=== PATIENT | female | born 1955 | race Caucasian/White ===

== ENCOUNTER → 2016-03-08 | Outpatient (CLI) | payer BC ==
[2016-03-08 17:27] LABS: Anisocytosis Slight; Basophils % (A) 1 %; CH 29.8; CHCM 32.7; Eosinophils # (A) 0.1 k/uL (0-0.7); Eosinophils % (A) 1 %; HCT 35.2 % (34.0-46.0); HDW 2.58; HGB 11.4 gm/dL (11.4-16.0); Luc # (Auto) 0.08; Luc % (Auto) 2; Lymphocytes # (A) 1.6 k/uL (1.0-4.8); Lymphocytes % (A) 42 %; MCH 29.7 pg (25.0-35.0); MCHC 32.5 g/dL (31.0-37.0); MCV 91.5 fL (80.0-100.0); Mean Platelet Volume 7.4; Monocytes # (A) 0.1 k/uL (0-1.0); Monocytes % (A) 3 %; Neutrophils # (A) 1.9 k/uL (1.3-7.7); Neutrophils % (A) 51 %; RBC 3.84 m/uL (3.80-5.40); RDW 16.9 % (11.5-15.5); WBC 3.7 k/uL (3.8-10.6); WBC (Perox) 3.73
== END | disposition home or self-care (01) ==
LOC: LABWHC1 16:48
PROVIDERS: ATTEND Obstetrics & Gynecology
DX: C56.1 Malignant neoplasm of right ovary (principal); C56.2 Malignant neoplasm of left ovary
CPT/HCPCS: 36415; 83735; 85025

== ENCOUNTER → 2016-03-15 | Outpatient (CLI) | payer BC ==
[2016-03-15 17:12] LABS: Anisocytosis Slight; Basophils % (A) 0 %; CH 29.9; Eosinophils % (A) 1 %; HCT 30.6 % (34.0-46.0); HDW 2.58; HGB 10.2 gm/dL (11.4-16.0); Luc # (Auto) 0.05; Luc % (Auto) 2; Lymphocytes # (A) 1.2 k/uL (1.0-4.8); Lymphocytes % (A) 40 %; MCH 30.2 pg (25.0-35.0); MCHC 33.3 g/dL (31.0-37.0); MCV 90.9 fL (80.0-100.0); Mean Platelet Volume 8.1; Monocytes # (A) 0.1 k/uL (0-1.0); Monocytes % (A) 4 %; Neutrophils # (A) 1.6 k/uL (1.3-7.7); Neutrophils % (A) 53 %; RBC 3.36 m/uL (3.80-5.40); WBC (Perox) 3.08
== END | disposition home or self-care (01) ==
LOC: LABWHC1 16:55
PROVIDERS: ATTEND Obstetrics & Gynecology
DX: C56.1 Malignant neoplasm of right ovary (principal); C56.2 Malignant neoplasm of left ovary
CPT/HCPCS: 36415; 85025

== ENCOUNTER → 2016-03-22 | Outpatient (CLI) | payer BC ==
[2016-03-22 17:25] LABS: ALT 59 U/L (9-52); AST 30 U/L (14-36); Alkaline Phosphatase 69 U/L (38-126); Anion Gap 11 mmol/L; Blood Urea Nitrogen 14 mg/dL (7-17); Calcium 9.8 mg/dL (8.4-10.2); Carbon Dioxide 27 mmol/L (22-30); Chloride 101 mmol/L (98-107); Glucose 93 mg/dL (74-99); Magnesium 1.6 mg/dL (1.6-2.3); Non-African American GFR(MDRD) >60 (>60 ml/min/1.73 sqM); Potassium 3.8 mmol/L (3.5-5.1); Sodium 139 mmol/L (137-145); Total Bilirubin 0.3 mg/dL (0.2-1.3); Total Protein 6.4 g/dL (6.3-8.2)
[2016-03-22 17:28] LABS: Anisocytosis Slight; Aty Lym Flag Slight; CH 30.2; CHCM 32.7; HCT 33.1 % (34.0-46.0); HDW 2.74; HGB 10.4 gm/dL (11.4-16.0); MCH 29.3 pg (25.0-35.0); MCHC 31.5 g/dL (31.0-37.0); MCV 92.9 fL (80.0-100.0); Macrocytosis Slight; Mean Platelet Volume 7.9; RBC 3.56 m/uL (3.80-5.40); RDW 18.7 % (11.5-15.5); WBC 2.9 k/uL (3.8-10.6); WBC (Perox) 2.97
[2016-03-22 17:53] LABS: Add Differential Manual Differential
[2016-03-22 17:54] LABS: Cancer Anitgen 125 <5.5 U/mL (<35.1); Nucleated Red Blood Cells 0 /100 WBC (0-0); Polychromasia Present; Total Cells Counted 100
== END | disposition home or self-care (01) ==
LOC: LABWHC1 16:39
PROVIDERS: ATTEND Obstetrics & Gynecology
DX: C56.1 Malignant neoplasm of right ovary (principal); C56.2 Malignant neoplasm of left ovary
CPT/HCPCS: 36415; 80053; 83735; 85025; 86304

== ENCOUNTER → 2016-03-29 | Outpatient (CLI) | payer BC ==
[2016-03-29 17:08] LABS: Anisocytosis Slight; Aty Lym Flag Slight; CH 29.9; CHCM 32.3; HCT 34.9 % (34.0-46.0); HDW 2.76; HGB 11.2 gm/dL (11.4-16.0); MCH 29.8 pg (25.0-35.0); MCHC 32.1 g/dL (31.0-37.0); MCV 92.8 fL (80.0-100.0); Mean Platelet Volume 6.7; RBC 3.76 m/uL (3.80-5.40); RDW 18.3 % (11.5-15.5); WBC 4.5 k/uL (3.8-10.6); WBC (Perox) 4.38
[2016-03-29 17:11] LABS: Anion Gap 12 mmol/L; Blood Urea Nitrogen 20 mg/dL (7-17); Calcium 10.2 mg/dL (8.4-10.2); Carbon Dioxide 28 mmol/L (22-30); Chloride 100 mmol/L (98-107); Glucose 90 mg/dL (74-99); Magnesium 1.6 mg/dL (1.6-2.3); Non-African American GFR(MDRD) >60 (>60 ml/min/1.73 sqM); Potassium 3.6 mmol/L (3.5-5.1); Sodium 140 mmol/L (137-145)
[2016-03-29 17:12] LABS: ALT 46 U/L (9-52); AST 27 U/L (14-36); Alkaline Phosphatase 68 U/L (38-126); Total Bilirubin 0.4 mg/dL (0.2-1.3); Total Protein 7.3 g/dL (6.3-8.2)
[2016-03-29 18:32] LABS: Add Differential Manual Differential
[2016-03-29 18:34] LABS: Nucleated Red Blood Cells 0 /100 WBC (0-0); Polychromasia Present; Total Cells Counted 100
== END | disposition home or self-care (01) ==
LOC: LABWHC1 16:41
PROVIDERS: ATTEND Obstetrics & Gynecology
DX: C56.1 Malignant neoplasm of right ovary (principal); C56.2 Malignant neoplasm of left ovary
CPT/HCPCS: 36415; 80053; 83735; 85025

== ENCOUNTER → 2016-04-05 | Outpatient (CLI) | payer BC ==
[2016-04-05 17:21] LABS: Anisocytosis Slight; Basophils % (A) 1 %; CHCM 32.6; Eosinophils % (A) 1 %; HCT 34.9 % (34.0-46.0); HGB 11.4 gm/dL (11.4-16.0); Luc # (Auto) 0.11; Luc % (Auto) 3; Lymphocytes # (A) 1.5 k/uL (1.0-4.8); Lymphocytes % (A) 43 %; MCH 30.2 pg (25.0-35.0); MCHC 32.7 g/dL (31.0-37.0); MCV 92.2 fL (80.0-100.0); Mean Platelet Volume 6.6; Monocytes # (A) 0.1 k/uL (0-1.0); Monocytes % (A) 3 %; Neutrophils # (A) 1.7 k/uL (1.3-7.7); Neutrophils % (A) 49 %; RBC 3.78 m/uL (3.80-5.40); RDW 17.9 % (11.5-15.5); WBC 3.5 k/uL (3.8-10.6); WBC (Perox) 3.67
== END | disposition home or self-care (01) ==
LOC: LABWHC1 16:35
PROVIDERS: ATTEND Obstetrics & Gynecology
DX: C56.1 Malignant neoplasm of right ovary (principal); C56.2 Malignant neoplasm of left ovary
CPT/HCPCS: 36415; 85025

== ENCOUNTER → 2016-04-12 | Outpatient (CLI) | payer BC ==
[2016-04-12 17:18] LABS: Anisocytosis Slight; Luc # (Auto) 0.11
[2016-04-12 17:27] LABS: Basophils % (A) 0 %; CH 30.2; CHCM 33.1; Eosinophils % (A) 1 %; HCT 31.9 % (34.0-46.0); HDW 2.53; HGB 10.8 gm/dL (11.4-16.0); Luc % (Auto) 4; Lymphocytes # (A) 1.2 k/uL (1.0-4.8); Lymphocytes % (A) 39 %; MCH 30.9 pg (25.0-35.0); MCHC 33.8 g/dL (31.0-37.0); MCV 91.4 fL (80.0-100.0); Mean Platelet Volume 6.6; Monocytes # (A) 0.1 k/uL (0-1.0); Monocytes % (A) 4 %; Neutrophils # (A) 1.5 k/uL (1.3-7.7); Neutrophils % (A) 52 %; RBC 3.49 m/uL (3.80-5.40); RDW 18.3 % (11.5-15.5); WBC 2.9 k/uL (3.8-10.6); WBC (Perox) 3.09
== END | disposition home or self-care (01) ==
LOC: LABWHC1 17:02
PROVIDERS: ATTEND Obstetrics & Gynecology
DX: C56.1 Malignant neoplasm of right ovary (principal); C56.2 Malignant neoplasm of left ovary
CPT/HCPCS: 36415; 85025

== ENCOUNTER → 2016-04-19 | Outpatient (CLI) | payer BC ==
[2016-04-19 16:54] LABS: Anisocytosis Slight; Aty Lym Flag Moderate; CH 30.2; CHCM 32.7; HCT 34.2 % (34.0-46.0); HDW 2.69; HGB 11.3 gm/dL (11.4-16.0); MCH 30.5 pg (25.0-35.0); MCHC 32.9 g/dL (31.0-37.0); MCV 92.8 fL (80.0-100.0); Macrocytosis Slight; Mean Platelet Volume 7.5; RBC 3.69 m/uL (3.80-5.40); RDW 19.4 % (11.5-15.5); WBC 3.8 k/uL (3.8-10.6); WBC (Perox) 4.05
[2016-04-19 17:05] LABS: ALT 52 U/L (9-52); AST 29 U/L (14-36); Alkaline Phosphatase 78 U/L (38-126); Anion Gap 9 mmol/L; Blood Urea Nitrogen 15 mg/dL (7-17); Carbon Dioxide 28 mmol/L (22-30); Chloride 103 mmol/L (98-107); Glucose 100 mg/dL (74-99); Magnesium 1.5 mg/dL (1.6-2.3); Non-African American GFR(MDRD) >60 (>60 ml/min/1.73 sqM); Sodium 140 mmol/L (137-145); Total Bilirubin 0.3 mg/dL (0.2-1.3)
[2016-04-19 17:35] LABS: Cancer Anitgen 125 <5.5 U/mL (<35.1)
[2016-04-19 18:37] LABS: Potassium 3.7 mmol/L (3.5-5.1)
[2016-04-19 19:18] LABS: Add Differential Manual Differential
[2016-04-19 19:20] LABS: Nucleated Red Blood Cells 0 /100 WBC (0-0); Total Cells Counted 100
[2016-04-19 19:21] LABS: Manual Review Performed
== END | disposition home or self-care (01) ==
LOC: LABWHC1 16:33
PROVIDERS: ATTEND Obstetrics & Gynecology
DX: C56.1 Malignant neoplasm of right ovary (principal); C56.2 Malignant neoplasm of left ovary
CPT/HCPCS: 36415; 80053; 83735; 85025; 86304

== ENCOUNTER → 2016-04-26 | Outpatient (CLI) | payer BC ==
[2016-04-26 17:05] LABS: Anisocytosis Slight; Aty Lym Flag Slight; CH 30.7; CHCM 32.9; HCT 35.8 % (34.0-46.0); HDW 2.77; HGB 11.5 gm/dL (11.4-16.0); MCV 93.8 fL (80.0-100.0); Macrocytosis Slight; Mean Platelet Volume 7.2; RBC 3.82 m/uL (3.80-5.40); RDW 19.3 % (11.5-15.5); WBC 4.3 k/uL (3.8-10.6); WBC (Perox) 4.54
[2016-04-26 17:09] LABS: Magnesium 1.7 mg/dL (1.6-2.3)
[2016-04-26 17:48] LABS: Add Differential Manual Differential
[2016-04-26 17:49] LABS: Nucleated Red Blood Cells 0 /100 WBC (0-0); Polychromasia Present; Total Cells Counted 100
[2016-04-26 23:06] LABS: ALT 37 U/L (9-52); AST 30 U/L (14-36); Alkaline Phosphatase 73 U/L (38-126); Anion Gap 12 mmol/L; Blood Urea Nitrogen 15 mg/dL (7-17); Calcium 10.1 mg/dL (8.4-10.2); Carbon Dioxide 25 mmol/L (22-30); Chloride 103 mmol/L (98-107); Glucose 88 mg/dL (74-99); Non-African American GFR(MDRD) >60 (>60 ml/min/1.73 sqM); Potassium 4.2 mmol/L (3.5-5.1); Sodium 140 mmol/L (137-145); Total Bilirubin 0.4 mg/dL (0.2-1.3); Total Protein 6.9 g/dL (6.3-8.2)
== END | disposition home or self-care (01) ==
LOC: LABWHC1 16:31
PROVIDERS: ATTEND Obstetrics & Gynecology
DX: C56.1 Malignant neoplasm of right ovary (principal); C56.2 Malignant neoplasm of left ovary
CPT/HCPCS: 36415; 80053; 83735; 85025

== ENCOUNTER → 2016-05-03 | Outpatient (CLI) | payer BC ==
[2016-05-03 16:51] LABS: Anisocytosis Slight; Basophils % (A) 1 %; CH 30.8; Eosinophils # (A) 0.1 k/uL (0-0.7); Eosinophils % (A) 2 %; HCT 36.7 % (34.0-46.0); HDW 2.63; HGB 12.2 gm/dL (11.4-16.0); Luc # (Auto) 0.16; Luc % (Auto) 4; Lymphocytes # (A) 1.9 k/uL (1.0-4.8); Lymphocytes % (A) 44 %; MCHC 33.1 g/dL (31.0-37.0); MCV 93.7 fL (80.0-100.0); Mean Platelet Volume 7.3; Monocytes # (A) 0.1 k/uL (0-1.0); Monocytes % (A) 2 %; Neutrophils % (A) 48 %; RBC 3.92 m/uL (3.80-5.40); RDW 18.5 % (11.5-15.5); WBC 4.3 k/uL (3.8-10.6)
== END | disposition home or self-care (01) ==
LOC: LABWHC1 16:22
PROVIDERS: ATTEND Obstetrics & Gynecology
DX: C56.1 Malignant neoplasm of right ovary (principal); C56.2 Malignant neoplasm of left ovary
CPT/HCPCS: 36415; 85025

== ENCOUNTER → 2016-05-10 | Outpatient (CLI) | payer BC ==
[2016-05-10 15:15] LABS: Anisocytosis Slight; Basophils % (A) 1 %; CH 30.7; CHCM 33.2; Eosinophils # (A) 0.1 k/uL (0-0.7); Eosinophils % (A) 1 %; HCT 33.2 % (34.0-46.0); HDW 2.62; HGB 11.1 gm/dL (11.4-16.0); Luc # (Auto) 0.14; Luc % (Auto) 4; Lymphocytes # (A) 1.7 k/uL (1.0-4.8); Lymphocytes % (A) 46 %; MCH 31.1 pg (25.0-35.0); MCHC 33.5 g/dL (31.0-37.0); MCV 92.9 fL (80.0-100.0); Mean Platelet Volume 7.6; Monocytes % (A) 1 %; Neutrophils # (A) 1.8 k/uL (1.3-7.7); Neutrophils % (A) 47 %; RBC 3.58 m/uL (3.80-5.40); RDW 18.2 % (11.5-15.5); WBC 3.8 k/uL (3.8-10.6); WBC (Perox) 3.61
== END | disposition home or self-care (01) ==
LOC: LABWHC1 15:01
PROVIDERS: ATTEND Obstetrics & Gynecology
DX: C56.1 Malignant neoplasm of right ovary (principal); C56.2 Malignant neoplasm of left ovary
CPT/HCPCS: 36415; 85025

== ENCOUNTER → 2016-07-26 | Outpatient (CLI) | payer BC ==
[2016-07-26 15:58] LABS: Basophils % (A) 1 %; CH 30.8; CHCM 32.2; Eosinophils # (A) 0.2 k/uL (0-0.7); Eosinophils % (A) 4 %; HCT 37.3 % (34.0-46.0); HDW 2.45; HGB 12.2 gm/dL (11.4-16.0); Luc # (Auto) 0.18; Luc % (Auto) 4; Lymphocytes # (A) 1.4 k/uL (1.0-4.8); Lymphocytes % (A) 30 %; MCH 31.5 pg (25.0-35.0); MCHC 32.9 g/dL (31.0-37.0); MCV 95.9 fL (80.0-100.0); Mean Platelet Volume 6.5; Monocytes # (A) 0.4 k/uL (0-1.0); Monocytes % (A) 9 %; Neutrophils # (A) 2.5 k/uL (1.3-7.7); Neutrophils % (A) 53 %; RBC 3.89 m/uL (3.80-5.40); RDW 15.6 % (11.5-15.5); WBC 4.7 k/uL (3.8-10.6); WBC (Perox) 4.81
[2016-07-26 16:11] LABS: ALT 45 U/L (9-52); AST 40 U/L (14-36); Alkaline Phosphatase 69 U/L (38-126); Anion Gap 11 mmol/L; Blood Urea Nitrogen 16 mg/dL (7-17); Calcium 9.9 mg/dL (8.4-10.2); Carbon Dioxide 26 mmol/L (22-30); Chloride 103 mmol/L (98-107); Glucose 102 mg/dL (74-99); Non-African American GFR(MDRD) >60 (>60 ml/min/1.73 sqM); Sodium 140 mmol/L (137-145); Total Bilirubin 0.6 mg/dL (0.2-1.3); Total Protein 6.6 g/dL (6.3-8.2)
== END | disposition home or self-care (01) ==
LOC: LABWHC1 15:44
PROVIDERS: ATTEND Obstetrics & Gynecology
DX: C56.1 Malignant neoplasm of right ovary (principal); C56.2 Malignant neoplasm of left ovary
CPT/HCPCS: 36415; 80053; 85025

== ENCOUNTER → 2016-09-28 | Outpatient (CLI) | payer BC ==
[2016-09-28 17:06] LABS: ALT 218 U/L (9-52); AST 107 U/L (14-36); Alkaline Phosphatase 129 U/L (38-126); Anion Gap 9 mmol/L; Blood Urea Nitrogen 23 mg/dL (7-17); Carbon Dioxide 28 mmol/L (22-30); Chloride 100 mmol/L (98-107); Glucose 89 mg/dL (74-99); Non-African American GFR(MDRD) >60 (>60 ml/min/1.73 sqM); Potassium 4.2 mmol/L (3.5-5.1); Sodium 137 mmol/L (137-145); Total Bilirubin 0.9 mg/dL (0.2-1.3); Total Protein 6.7 g/dL (6.3-8.2)
== END ==
LOC: LABWHC1 16:35
PROVIDERS: ATTEND Obstetrics & Gynecology
DX: C56.1 Malignant neoplasm of right ovary (principal); C56.2 Malignant neoplasm of left ovary
CPT/HCPCS: 36415; 80053

== ENCOUNTER → 2016-10-11 | Outpatient (CLI) | payer BC ==
[2016-10-11 14:47] LABS: ALT 152 U/L (9-52); AST 57 U/L (14-36); Alkaline Phosphatase 114 U/L (38-126); Anion Gap 8 mmol/L; Blood Urea Nitrogen 21 mg/dL (7-17); Calcium 9.5 mg/dL (8.4-10.2); Carbon Dioxide 25 mmol/L (22-30); Chloride 101 mmol/L (98-107); Glucose 89 mg/dL (74-99); Non-African American GFR(MDRD) >60 (>60 ml/min/1.73 sqM); Potassium 4.2 mmol/L (3.5-5.1); Sodium 134 mmol/L (137-145); Total Bilirubin 0.3 mg/dL (0.2-1.3); Total Protein 6.5 g/dL (6.3-8.2)
== END | disposition home or self-care (01) ==
LOC: LABWHC1 14:18
PROVIDERS: ATTEND Obstetrics & Gynecology
DX: R74.8 Abnormal levels of other serum enzymes (principal)
CPT/HCPCS: 36415; 80053

== ENCOUNTER → 2016-10-13 | Outpatient (CLI) | payer BC ==
--- NOTE | 2016-10-13 08:27 | US ---
EXAMINATION TYPE: US liver DATE OF EXAM: 10/13/2016 COMPARISON: CT abdomen and pelvis August 11, 2015. CLINICAL HISTORY: R74.8 ELEVATED LIVER ENZYMES. Patient stated is currently on chemo drug for recurre nt ovarian cancer; had Breast CA too with BRCA1. EXAM MEASUREMENTS: Liver Length: 13.3 cm Gallbladder Wall: 0.2 cm CBD: 0.4 cm Right Kidney: 10.0 x 4.8 x 4.3 cm Pancreas: Homogeneous; no masses seen Liver: 2 cysts seen/ with cluster noted in left lobe = 2.3 x 2.9 x 1.1cm and larger right lobe cyst noted inferiorly = 6.4 x 5.0 x 4.3cm. Gallbladder: wnl Evidence for sonographic Barahona's sign: No CBD: wnl Right Kidney: No hydronephrosis or masses seen A few thin-walled cysts are redemonstrated scattered throughout the liver. IMPRESSION: No worrisome new intrahepatic mass or suspicious intrahepatic ductal dilatation.
== END | disposition home or self-care (01) ==
LOC: RADUSWWP 06:55
PROVIDERS: ATTEND Obstetrics & Gynecology
DX: R74.8 Abnormal levels of other serum enzymes (principal)
CPT/HCPCS: 76705

== ENCOUNTER → 2016-10-18 | Outpatient (CLI) | payer BC ==
[2016-10-18 16:52] LABS: Anisocytosis Moderate; Aty Lym Flag Slight; CH 34.5; CHCM 34.2; HCT 29.7 % (34.0-46.0); HDW 2.67; HGB 9.8 gm/dL (11.4-16.0); MCH 33.5 pg (25.0-35.0); MCV 101.6 fL (80.0-100.0); Macrocytosis Marked; Mean Platelet Volume 7.2; RBC 2.92 m/uL (3.80-5.40); RDW 23.2 % (11.5-15.5); WBC 3.9 k/uL (3.8-10.6); WBC (Perox) 3.74
[2016-10-18 17:02] LABS: ALT 118 U/L (9-52); AST 46 U/L (14-36); Alkaline Phosphatase 107 U/L (38-126); Anion Gap 11 mmol/L; Blood Urea Nitrogen 17 mg/dL (7-17); Carbon Dioxide 25 mmol/L (22-30); Chloride 101 mmol/L (98-107); Glucose 96 mg/dL (74-99); Magnesium 1.6 mg/dL (1.6-2.3); Non-African American GFR(MDRD) >60 (>60 ml/min/1.73 sqM); Potassium 4.1 mmol/L (3.5-5.1); Sodium 137 mmol/L (137-145); Total Bilirubin 0.7 mg/dL (0.2-1.3); Total Protein 7.4 g/dL (6.3-8.2)
[2016-10-18 17:22] LABS: Add Differential Manual Differential
[2016-10-18 17:27] LABS: Manual Review Performed; Nucleated Red Blood Cells 0 /100 WBC (0-0); Total Cells Counted 100
== END | disposition home or self-care (01) ==
LOC: LABWHC1 16:35
PROVIDERS: ATTEND Obstetrics & Gynecology
DX: C56.1 Malignant neoplasm of right ovary (principal); C56.2 Malignant neoplasm of left ovary
CPT/HCPCS: 36415; 80053; 83735; 85025; 86304

== ENCOUNTER → 2017-05-05 | Outpatient (CLI) | payer BC ==
[2017-05-05 09:48] LABS: T4, Free (Free Thyroxine) 1.44 ng/dL (0.78-2.19)
== END | disposition home or self-care (01) ==
LOC: LABWHC1 08:14
PROVIDERS: ATTEND Physician Assistant
DX: Z00.00 Encounter for general adult medical examination without abnormal findings (principal); Z13.9 Encounter for screening, unspecified
CPT/HCPCS: 36415; 80061; 84439; 84443; 86803

== ENCOUNTER → 2017-08-13 | Outpatient (CLI) | payer BC ==
[2017-08-13 07:36] LABS: Anisocytosis Slight; Basophils % (A) 0 %; Eosinophils # (A) 0.1 k/uL (0-0.7); Eosinophils % (A) 3 %; HCT 25.2 % (34.0-46.0); HGB 8.5 gm/dL (11.4-16.0); Lymphocytes # (A) 1.5 k/uL (1.0-4.8); Lymphocytes % (A) 38 %; MCHC 33.7 g/dL (31.0-37.0); MCV 121.6 fL (80.0-100.0); Macrocytosis Marked; Mean Platelet Volume 7.9; Monocytes # (A) 0.2 k/uL (0-1.0); Monocytes % (A) 6 %; Neutrophils # (A) 1.9 k/uL (1.3-7.7); Neutrophils % (A) 50 %; Platelet Count 329 k/uL (150-450); RBC 2.07 m/uL (3.80-5.40); RDW 16.1 % (11.5-15.5); Reticulocyte % 1.8 % (0.5-2.0); WBC 3.9 k/uL (3.8-10.6)
[2017-08-13 07:51] LABS: Albumin 4.3 g/dL (3.5-5.0); Calcium 9.8 mg/dL (8.4-10.2); Potassium 4.1 mmol/L (3.5-5.1); Total Bilirubin 0.5 mg/dL (0.2-1.3); Total Protein 6.3 g/dL (6.3-8.2)
[2017-08-13 16:40] LABS: Folate, Serum 11.8 ng/mL
== END | disposition home or self-care (01) ==
LOC: LABWHC1 07:10
PROVIDERS: ATTEND Obstetrics & Gynecology
DX: C56.1 Malignant neoplasm of right ovary (principal); C56.2 Malignant neoplasm of left ovary; D64.9 Anemia, unspecified
CPT/HCPCS: 36415; 80053; 82607; 82746; 85025; 85045

== ENCOUNTER → 2017-11-07 | Outpatient (CLI) | payer BC ==
[2017-11-07 17:45] LABS: Basophils % (A) 1 %; Eosinophils # (A) 0.2 k/uL (0-0.7); Eosinophils % (A) 2 %; HCT 40.6 % (34.0-46.0); HGB 12.9 gm/dL (11.4-16.0); Lymphocytes # (A) 2.1 k/uL (1.0-4.8); Lymphocytes % (A) 32 %; MCHC 31.9 g/dL (31.0-37.0); Macrocytosis Slight; Mean Platelet Volume 6.8; Monocytes # (A) 0.4 k/uL (0-1.0); Monocytes % (A) 6 %; Neutrophils # (A) 3.8 k/uL (1.3-7.7); Neutrophils % (A) 57 %; Platelet Count 256 k/uL (150-450); RBC 4.17 m/uL (3.80-5.40); RDW 15.8 % (11.5-15.5); WBC 6.6 k/uL (3.8-10.6)
[2017-11-07 17:48] LABS: MCV 97.3 fL (80.0-100.0)
[2017-11-07 18:00] LABS: ALT 37 U/L (9-52); AST 23 U/L (14-36); Albumin 4.3 g/dL (3.5-5.0); Alkaline Phosphatase 66 U/L (38-126); Anion Gap 11 mmol/L; Blood Urea Nitrogen 17 mg/dL (7-17); Calcium 9.9 mg/dL (8.4-10.2); Carbon Dioxide 25 mmol/L (22-30); Chloride 102 mmol/L (98-107); Glucose 125 mg/dL (74-99); Magnesium 1.7 mg/dL (1.6-2.3); Potassium 3.6 mmol/L (3.5-5.1); Sodium 138 mmol/L (137-145); Total Bilirubin 0.3 mg/dL (0.2-1.3); Total Protein 6.7 g/dL (6.3-8.2)
== END | disposition home or self-care (01) ==
LOC: LABWHC1 17:02
PROVIDERS: ATTEND Nurse Practitioner
DX: C56.1 Malignant neoplasm of right ovary (principal); C56.2 Malignant neoplasm of left ovary
CPT/HCPCS: 36415; 80053; 83735; 85025; 86304

== ENCOUNTER → 2017-11-14 | Outpatient (CLI) | payer BC ==
[2017-11-14 17:47] LABS: Basophils % (A) 1 %; Eosinophils # (A) 0.1 k/uL (0-0.7); Eosinophils % (A) 3 %; HCT 42.6 % (34.0-46.0); HGB 13.5 gm/dL (11.4-16.0); Lymphocytes # (A) 1.8 k/uL (1.0-4.8); Lymphocytes % (A) 50 %; MCH 30.1 pg (25.0-35.0); MCHC 31.7 g/dL (31.0-37.0); MCV 94.9 fL (80.0-100.0); Mean Platelet Volume 6.7; Monocytes # (A) 0.1 k/uL (0-1.0); Monocytes % (A) 2 %; Neutrophils # (A) 1.6 k/uL (1.3-7.7); Neutrophils % (A) 43 %; Platelet Count 199 k/uL (150-450); RBC 4.49 m/uL (3.80-5.40); RDW 15.3 % (11.5-15.5); WBC 3.6 k/uL (3.8-10.6)
== END | disposition home or self-care (01) ==
LOC: LABWHC1 16:56
PROVIDERS: ATTEND Nurse Practitioner
DX: C56.1 Malignant neoplasm of right ovary (principal); C56.2 Malignant neoplasm of left ovary
CPT/HCPCS: 36415; 85025

== ENCOUNTER → 2017-11-21 | Outpatient (CLI) | payer BC ==
[2017-11-21 17:49] LABS: Basophils % (A) 0 %; Eosinophils # (A) 0.1 k/uL (0-0.7); Eosinophils % (A) 2 %; HCT 37.8 % (34.0-46.0); HGB 12.6 gm/dL (11.4-16.0); Lymphocytes # (A) 1.8 k/uL (1.0-4.8); Lymphocytes % (A) 58 %; MCH 30.6 pg (25.0-35.0); MCHC 33.3 g/dL (31.0-37.0); MCV 91.7 fL (80.0-100.0); Mean Platelet Volume 6.9; Monocytes % (A) 1 %; Neutrophils # (A) 1.2 k/uL (1.3-7.7); Neutrophils % (A) 38 %; RBC 4.12 m/uL (3.80-5.40); RDW 14.7 % (11.5-15.5); WBC 3.2 k/uL (3.8-10.6)
[2017-11-21 20:14] LABS: Platelet Count 86 k/uL (150-450)
== END ==
LOC: LABWHC1 16:51
PROVIDERS: ATTEND Nurse Practitioner
DX: C56.1 Malignant neoplasm of right ovary (principal); C56.2 Malignant neoplasm of left ovary
CPT/HCPCS: 36415; 85025

== ENCOUNTER → 2017-11-28 | Outpatient (CLI) | payer BC ==
[2017-11-28 15:24] LABS: HCT 40.9 % (34.0-46.0); HGB 12.7 gm/dL (11.4-16.0); MCH 29.6 pg (25.0-35.0); MCHC 31.1 g/dL (31.0-37.0); MCV 95.2 fL (80.0-100.0); Mean Platelet Volume 7.1; Platelet Count 167 k/uL (150-450); RDW 15.9 % (11.5-15.5); WBC 3.7 k/uL (3.8-10.6)
[2017-11-28 15:38] LABS: ALT 36 U/L (9-52); AST 29 U/L (14-36); Albumin 4.1 g/dL (3.5-5.0); Alkaline Phosphatase 71 U/L (38-126); Anion Gap 10 mmol/L; Blood Urea Nitrogen 18 mg/dL (7-17); Carbon Dioxide 25 mmol/L (22-30); Chloride 103 mmol/L (98-107); Glucose 86 mg/dL (74-99); Magnesium 1.7 mg/dL (1.6-2.3); Potassium 4.1 mmol/L (3.5-5.1); Sodium 138 mmol/L (137-145); Total Bilirubin 0.1 mg/dL (0.2-1.3); Total Protein 6.8 g/dL (6.3-8.2)
[2017-11-28 15:51] LABS: Band Neutrophils % 1 %; Eosinophils # (M) 0.07 k/uL (0-0.7); Lymphocytes # (M) 2.07 k/uL (1.0-4.8); Monocytes # (M) 0.41 k/uL (0-1.0); Neutrophils % (M) 30 %; Nucleated Red Blood Cells 0 /100 WBC (0-0); Polychromasia Present; Total Cells Counted 100
== END | disposition home or self-care (01) ==
LOC: LABWHC1 14:34
PROVIDERS: ATTEND Nurse Practitioner
DX: C56.1 Malignant neoplasm of right ovary (principal); C56.2 Malignant neoplasm of left ovary
CPT/HCPCS: 36415; 80053; 83735; 85025; 86304

== ENCOUNTER → 2017-12-05 | Outpatient (CLI) | payer BC ==
[2017-12-05 17:07] LABS: Anisocytosis Slight; Basophils % (A) 1 %; Eosinophils % (A) 1 %; HCT 39.3 % (34.0-46.0); HGB 12.9 gm/dL (11.4-16.0); Lymphocytes # (A) 1.9 k/uL (1.0-4.8); Lymphocytes % (A) 45 %; MCH 30.2 pg (25.0-35.0); MCHC 32.7 g/dL (31.0-37.0); MCV 92.3 fL (80.0-100.0); Mean Platelet Volume 6.7; Monocytes # (A) 0.4 k/uL (0-1.0); Monocytes % (A) 10 %; Neutrophils # (A) 1.6 k/uL (1.3-7.7); Neutrophils % (A) 40 %; RBC 4.26 m/uL (3.80-5.40); WBC 4.1 k/uL (3.8-10.6)
[2017-12-05 17:11] LABS: Platelet Count 428 k/uL (150-450)
[2017-12-05 17:14] LABS: ALT 30 U/L (9-52); AST 23 U/L (14-36); Albumin 4.2 g/dL (3.5-5.0); Alkaline Phosphatase 74 U/L (38-126); Anion Gap 7 mmol/L; Blood Urea Nitrogen 16 mg/dL (7-17); Calcium 10.2 mg/dL (8.4-10.2); Carbon Dioxide 28 mmol/L (22-30); Chloride 103 mmol/L (98-107); Glucose 93 mg/dL (74-99); Magnesium 1.8 mg/dL (1.6-2.3); Potassium 4.3 mmol/L (3.5-5.1); Sodium 138 mmol/L (137-145); Total Bilirubin 0.2 mg/dL (0.2-1.3); Total Protein 6.8 g/dL (6.3-8.2)
== END ==
LOC: LABWHC1 16:35
PROVIDERS: ATTEND Internal Medicine
DX: C56.1 Malignant neoplasm of right ovary (principal); C56.2 Malignant neoplasm of left ovary
CPT/HCPCS: 36415; 80053; 83735; 85025

== ENCOUNTER → 2017-12-12 | Outpatient (CLI) | payer BC ==
[2017-12-12 15:16] LABS: Basophils % (A) 1 %; Eosinophils # (A) 0.1 k/uL (0-0.7); Eosinophils % (A) 2 %; HCT 38.3 % (34.0-46.0); HGB 12.7 gm/dL (11.4-16.0); Lymphocytes # (A) 1.8 k/uL (1.0-4.8); Lymphocytes % (A) 46 %; MCHC 33.1 g/dL (31.0-37.0); MCV 90.6 fL (80.0-100.0); Mean Platelet Volume 6.7; Monocytes # (A) 0.1 k/uL (0-1.0); Monocytes % (A) 1 %; Neutrophils # (A) 1.9 k/uL (1.3-7.7); Neutrophils % (A) 49 %; Platelet Count 261 k/uL (150-450); RBC 4.22 m/uL (3.80-5.40); RDW 15.9 % (11.5-15.5)
== END | disposition home or self-care (01) ==
LOC: LABWHC1 14:42
PROVIDERS: ATTEND Obstetrics & Gynecology
DX: C56.1 Malignant neoplasm of right ovary (principal); C56.2 Malignant neoplasm of left ovary
CPT/HCPCS: 36415; 85025

== ENCOUNTER → 2017-12-19 | Outpatient (CLI) | payer BC ==
[2017-12-19 16:53] LABS: Anisocytosis Slight; Basophils % (A) 1 %; Eosinophils % (A) 1 %; HCT 37.3 % (34.0-46.0); HGB 12.1 gm/dL (11.4-16.0); Lymphocytes # (A) 1.7 k/uL (1.0-4.8); Lymphocytes % (A) 44 %; MCH 30.2 pg (25.0-35.0); MCHC 32.6 g/dL (31.0-37.0); MCV 92.7 fL (80.0-100.0); Mean Platelet Volume 6.5; Monocytes # (A) 0.1 k/uL (0-1.0); Monocytes % (A) 2 %; Neutrophils % (A) 51 %; RBC 4.02 m/uL (3.80-5.40); RDW 16.6 % (11.5-15.5); WBC 3.8 k/uL (3.8-10.6)
[2017-12-19 16:55] LABS: Platelet Count 109 k/uL (150-450)
[2017-12-19 17:04] LABS: ALT 141 U/L (9-52); AST 79 U/L (14-36); Albumin 4.1 g/dL (3.5-5.0); Alkaline Phosphatase 70 U/L (38-126); Anion Gap 8 mmol/L; Blood Urea Nitrogen 20 mg/dL (7-17); Calcium 10.3 mg/dL (8.4-10.2); Carbon Dioxide 29 mmol/L (22-30); Chloride 101 mmol/L (98-107); Glucose 101 mg/dL (74-99); Magnesium 1.6 mg/dL (1.6-2.3); Potassium 4.5 mmol/L (3.5-5.1); Sodium 138 mmol/L (137-145); Total Bilirubin 0.3 mg/dL (0.2-1.3); Total Protein 6.7 g/dL (6.3-8.2)
== END | disposition home or self-care (01) ==
LOC: LABWHC1 15:59
PROVIDERS: ATTEND Obstetrics & Gynecology
DX: C56.1 Malignant neoplasm of right ovary (principal); C56.2 Malignant neoplasm of left ovary
CPT/HCPCS: 36415; 80053; 83735; 85025; 86304

== ENCOUNTER → 2017-12-26 | Outpatient (CLI) | payer BC ==
[2017-12-26 15:49] LABS: ALT 41 U/L (9-52); AST 27 U/L (14-36); Albumin 4.1 g/dL (3.5-5.0); Albumin/Globulin Ratio 1.5; Alkaline Phosphatase 69 U/L (38-126); Anion Gap 5 mmol/L; Blood Urea Nitrogen 18 mg/dL (7-17); Calcium 10.3 mg/dL (8.4-10.2); Carbon Dioxide 30 mmol/L (22-30); Chloride 104 mmol/L (98-107); Globulin 2.7 g/dL; Glucose 110 mg/dL (74-99); Magnesium 1.5 mg/dL (1.6-2.3); Sodium 139 mmol/L (137-145); Total Bilirubin 0.2 mg/dL (0.2-1.3); Total Protein 6.8 g/dL (6.3-8.2)
[2017-12-26 16:12] LABS: Anisocytosis Slight; HCT 37.3 % (34.0-46.0); HGB 11.8 gm/dL (11.4-16.0); MCH 29.2 pg (25.0-35.0); MCHC 31.6 g/dL (31.0-37.0); MCV 92.3 fL (80.0-100.0); Mean Platelet Volume 7.1; RBC 4.04 m/uL (3.80-5.40); RDW 18.6 % (11.5-15.5); WBC 4.2 k/uL (3.8-10.6)
[2017-12-26 16:14] LABS: Platelet Count 262 k/uL (150-450)
[2017-12-26 17:15] LABS: Band Neutrophils % 1 %; Basophils # (M) 0.04 k/uL (0-0.2); Eosinophils # (M) 0.04 k/uL (0-0.7); Monocytes # (M) 0.42 k/uL (0-1.0); Neutrophils % (M) 37 %; Nucleated Red Blood Cells 0 /100 WBC (0-0); Total Cells Counted 100
[2017-12-26 17:16] LABS: Poikilocytosis (M) Present; Polychromasia Present
== END | disposition home or self-care (01) ==
LOC: LABWHC1 15:00
PROVIDERS: ATTEND Obstetrics & Gynecology
DX: C56.1 Malignant neoplasm of right ovary (principal); C56.2 Malignant neoplasm of left ovary
CPT/HCPCS: 36415; 80053; 83735; 85025

== ENCOUNTER → 2018-01-02 | Outpatient (CLI) | payer BC ==
[2018-01-02 17:46] LABS: Anisocytosis Slight; HCT 34.9 % (34.0-46.0); HGB 11.4 gm/dL (11.4-16.0); MCHC 32.6 g/dL (31.0-37.0); MCV 92.1 fL (80.0-100.0); Mean Platelet Volume 6.6; Platelet Count 404 k/uL (150-450); RBC 3.79 m/uL (3.80-5.40); RDW 18.4 % (11.5-15.5); WBC 2.9 k/uL (3.8-10.6)
[2018-01-02 18:53] LABS: Lymphocytes # (M) 1.54 k/uL (1.0-4.8); Monocytes # (M) 0.09 k/uL (0-1.0); Neutrophils # (M) 1.28 k/uL (1.3-7.7); Neutrophils % (M) 44 %; Nucleated Red Blood Cells 0 /100 WBC (0-0); Total Cells Counted 100
== END | disposition home or self-care (01) ==
LOC: LABWHC1 16:41
PROVIDERS: ATTEND Obstetrics & Gynecology
DX: C56.1 Malignant neoplasm of right ovary (principal); C56.2 Malignant neoplasm of left ovary
CPT/HCPCS: 36415; 85025

== ENCOUNTER → 2018-01-09 | Outpatient (CLI) | payer BC ==
[2018-01-09 17:05] LABS: Anisocytosis Slight; Basophils % (A) 0 %; Eosinophils % (A) 1 %; HCT 33.2 % (34.0-46.0); HGB 10.9 gm/dL (11.4-16.0); Lymphocytes # (A) 1.7 k/uL (1.0-4.8); Lymphocytes % (A) 49 %; MCH 29.9 pg (25.0-35.0); MCHC 32.9 g/dL (31.0-37.0); MCV 90.8 fL (80.0-100.0); Mean Platelet Volume 6.3; Monocytes # (A) 0.2 k/uL (0-1.0); Monocytes % (A) 4 %; Neutrophils # (A) 1.5 k/uL (1.3-7.7); Neutrophils % (A) 43 %; RBC 3.65 m/uL (3.80-5.40); RDW 18.9 % (11.5-15.5); WBC 3.5 k/uL (3.8-10.6)
[2018-01-09 17:08] LABS: Platelet Count 145 k/uL (150-450)
== END ==
LOC: LABWHC1 15:25
PROVIDERS: ATTEND Obstetrics & Gynecology
DX: C56.1 Malignant neoplasm of right ovary (principal); C56.2 Malignant neoplasm of left ovary
CPT/HCPCS: 36415; 85025

== ENCOUNTER → 2018-01-23 | Outpatient (CLI) | payer BC ==
[2018-01-23 17:17] LABS: Anisocytosis Moderate; Basophils % (A) 1 %; Eosinophils # (A) 0.1 k/uL (0-0.7); Eosinophils % (A) 1 %; HCT 32.7 % (34.0-46.0); HGB 10.8 gm/dL (11.4-16.0); Lymphocytes # (A) 1.9 k/uL (1.0-4.8); Lymphocytes % (A) 50 %; MCH 30.9 pg (25.0-35.0); MCHC 33.1 g/dL (31.0-37.0); MCV 93.3 fL (80.0-100.0); Macrocytosis Slight; Mean Platelet Volume 6.7; Monocytes # (A) 0.1 k/uL (0-1.0); Monocytes % (A) 2 %; Neutrophils # (A) 1.6 k/uL (1.3-7.7); Neutrophils % (A) 42 %; RBC 3.51 m/uL (3.80-5.40); WBC 3.8 k/uL (3.8-10.6)
[2018-01-23 17:20] LABS: Platelet Count 402 k/uL (150-450)
== END ==
LOC: LABWHC1 16:44
PROVIDERS: ATTEND Obstetrics & Gynecology
DX: C56.1 Malignant neoplasm of right ovary (principal); C56.2 Malignant neoplasm of left ovary
CPT/HCPCS: 36415; 85025

== ENCOUNTER → 2018-01-30 | Outpatient (CLI) | payer BC ==
[2018-01-30 16:39] LABS: Anisocytosis Moderate; Basophils % (A) 0 %; Eosinophils % (A) 1 %; HGB 10.3 gm/dL (11.4-16.0); Lymphocytes # (A) 1.5 k/uL (1.0-4.8); Lymphocytes % (A) 47 %; MCH 31.7 pg (25.0-35.0); MCHC 33.2 g/dL (31.0-37.0); MCV 95.5 fL (80.0-100.0); Macrocytosis Moderate; Mean Platelet Volume 6.5; Monocytes # (A) 0.1 k/uL (0-1.0); Monocytes % (A) 3 %; Neutrophils # (A) 1.5 k/uL (1.3-7.7); Neutrophils % (A) 45 %; RBC 3.25 m/uL (3.80-5.40); WBC 3.2 k/uL (3.8-10.6)
[2018-01-30 16:41] LABS: Platelet Count 189 k/uL (150-450)
== END ==
LOC: LABWHC1 15:27
PROVIDERS: ATTEND Obstetrics & Gynecology
DX: C56.1 Malignant neoplasm of right ovary (principal); C56.2 Malignant neoplasm of left ovary
CPT/HCPCS: 36415; 85025

== ENCOUNTER → 2018-02-06 | Outpatient (CLI) | payer BC ==
[2018-02-06 16:35] LABS: Anisocytosis Moderate; Hypochromasia Slight; Macrocytosis Marked
[2018-02-06 16:42] LABS: HCT 32.3 % (34.0-46.0); HGB 10.5 gm/dL (11.4-16.0); MCH 32.5 pg (25.0-35.0); MCHC 32.4 g/dL (31.0-37.0); MCV 100.3 fL (80.0-100.0); Mean Platelet Volume 7.3; Platelet Count 175 k/uL (150-450); RBC 3.22 m/uL (3.80-5.40); RDW 23.8 % (11.5-15.5); WBC 3.6 k/uL (3.8-10.6)
[2018-02-06 16:48] LABS: ALT 43 U/L (9-52); AST 28 U/L (14-36); Albumin 4.2 g/dL (3.5-5.0); Albumin/Globulin Ratio 1.5; Alkaline Phosphatase 68 U/L (38-126); Anion Gap 8 mmol/L; Blood Urea Nitrogen 15 mg/dL (7-17); Calcium 10.1 mg/dL (8.4-10.2); Carbon Dioxide 27 mmol/L (22-30); Chloride 104 mmol/L (98-107); Globulin 2.8 g/dL; Glucose 95 mg/dL (74-99); Magnesium 1.5 mg/dL (1.6-2.3); Potassium 3.9 mmol/L (3.5-5.1); Sodium 139 mmol/L (137-145); Total Bilirubin 0.3 mg/dL (0.2-1.3)
[2018-02-06 17:39] LABS: Band Neutrophils % 3 %; Lymphocytes # (M) 1.69 k/uL (1.0-4.8); Monocytes # (M) 0.54 k/uL (0-1.0); Neutrophils % (M) 35 %; Nucleated Red Blood Cells 0 /100 WBC (0-0); Total Cells Counted 100
[2018-02-06 18:01] LABS: Large Platelets Present; Poikilocytosis (M) Present; Polychromasia Present
== END | disposition home or self-care (01) ==
LOC: LABWHC1 15:47
PROVIDERS: ATTEND Obstetrics & Gynecology
DX: C56.1 Malignant neoplasm of right ovary (principal); C56.2 Malignant neoplasm of left ovary
CPT/HCPCS: 36415; 80053; 83735; 85025; 86304

== ENCOUNTER → 2018-02-13 | Outpatient (CLI) | payer BC ==
[2018-02-13 17:11] LABS: Anisocytosis Moderate; Basophils % (A) 1 %; Eosinophils # (A) 0.2 k/uL (0-0.7); Eosinophils % (A) 4 %; HCT 34.7 % (34.0-46.0); HGB 11.3 gm/dL (11.4-16.0); Hypochromasia Slight; Lymphocytes # (A) 1.6 k/uL (1.0-4.8); Lymphocytes % (A) 34 %; MCH 32.6 pg (25.0-35.0); MCHC 32.7 g/dL (31.0-37.0); MCV 99.8 fL (80.0-100.0); Macrocytosis Moderate; Mean Platelet Volume 6.8; Monocytes # (A) 0.4 k/uL (0-1.0); Monocytes % (A) 8 %; Neutrophils # (A) 2.3 k/uL (1.3-7.7); Neutrophils % (A) 49 %; RBC 3.48 m/uL (3.80-5.40); RDW 21.2 % (11.5-15.5); WBC 4.6 k/uL (3.8-10.6)
[2018-02-13 17:14] LABS: Platelet Count 382 k/uL (150-450)
== END ==
LOC: LABWHC1 16:28
PROVIDERS: ATTEND Obstetrics & Gynecology
DX: C56.1 Malignant neoplasm of right ovary (principal); C56.2 Malignant neoplasm of left ovary
CPT/HCPCS: 36415; 85025

== ENCOUNTER → 2018-02-20 | Outpatient (CLI) | payer BC ==
[2018-02-20 17:06] LABS: Anisocytosis Slight; Basophils % (A) 1 %; Eosinophils # (A) 0.1 k/uL (0-0.7); Eosinophils % (A) 2 %; HCT 34.4 % (34.0-46.0); HGB 11.1 gm/dL (11.4-16.0); Lymphocytes # (A) 1.9 k/uL (1.0-4.8); Lymphocytes % (A) 48 %; MCH 32.5 pg (25.0-35.0); MCHC 32.2 g/dL (31.0-37.0); MCV 100.9 fL (80.0-100.0); Macrocytosis Moderate; Mean Platelet Volume 6.6; Monocytes # (A) 0.1 k/uL (0-1.0); Monocytes % (A) 2 %; Neutrophils # (A) 1.8 k/uL (1.3-7.7); Neutrophils % (A) 46 %; Platelet Count 340 k/uL (150-450); RBC 3.41 m/uL (3.80-5.40); RDW 18.8 % (11.5-15.5); WBC 3.9 k/uL (3.8-10.6)
== END ==
LOC: LABWHC1 16:25
PROVIDERS: ATTEND Obstetrics & Gynecology
DX: C56.1 Malignant neoplasm of right ovary (principal); C56.2 Malignant neoplasm of left ovary
CPT/HCPCS: 36415; 85025

== ENCOUNTER → 2018-02-27 | Outpatient (CLI) | payer BC ==
[2018-02-27 16:44] LABS: Anisocytosis Slight; Basophils % (A) 0 %; Eosinophils # (A) 0.1 k/uL (0-0.7); Eosinophils % (A) 2 %; HCT 33.3 % (34.0-46.0); HGB 10.6 gm/dL (11.4-16.0); Hypochromasia Slight; Lymphocytes # (A) 1.7 k/uL (1.0-4.8); Lymphocytes % (A) 42 %; MCH 32.8 pg (25.0-35.0); MCHC 31.8 g/dL (31.0-37.0); Macrocytosis Moderate; Mean Platelet Volume 6.9; Monocytes # (A) 0.1 k/uL (0-1.0); Monocytes % (A) 3 %; Neutrophils % (A) 50 %; RBC 3.23 m/uL (3.80-5.40); RDW 18.8 % (11.5-15.5); WBC 3.9 k/uL (3.8-10.6)
[2018-02-27 16:45] LABS: Platelet Count 152 k/uL (150-450)
[2018-02-27 16:55] LABS: ALT 54 U/L (9-52); AST 43 U/L (14-36); Albumin 4.3 g/dL (3.5-5.0); Albumin/Globulin Ratio 1.6; Alkaline Phosphatase 65 U/L (38-126); Anion Gap 11 mmol/L; Blood Urea Nitrogen 15 mg/dL (7-17); Calcium 10.2 mg/dL (8.4-10.2); Carbon Dioxide 25 mmol/L (22-30); Chloride 101 mmol/L (98-107); Globulin 2.7 g/dL; Glucose 110 mg/dL (74-99); Magnesium 1.4 mg/dL (1.6-2.3); Potassium 3.6 mmol/L (3.5-5.1); Sodium 137 mmol/L (137-145); Total Bilirubin 0.3 mg/dL (0.2-1.3)
== END | disposition home or self-care (01) ==
LOC: LABWHC1 16:11
PROVIDERS: ATTEND Obstetrics & Gynecology
DX: C56.1 Malignant neoplasm of right ovary (principal); C56.2 Malignant neoplasm of left ovary
CPT/HCPCS: 36415; 80053; 83735; 85025; 86304

== ENCOUNTER → 2018-03-06 | Outpatient (CLI) | payer BC ==
[2018-03-06 17:09] LABS: Anisocytosis Slight; HCT 37.4 % (34.0-46.0); HGB 11.9 gm/dL (11.4-16.0); MCHC 31.9 g/dL (31.0-37.0); MCV 103.5 fL (80.0-100.0); Macrocytosis Moderate; Mean Platelet Volume 6.8; Platelet Count 270 k/uL (150-450); RBC 3.62 m/uL (3.80-5.40); RDW 19.4 % (11.5-15.5)
[2018-03-06 17:36] LABS: Basophils # (M) 0.04 k/uL (0-0.2); Eosinophils # (M) 0.16 k/uL (0-0.7); Monocytes # (M) 0.56 k/uL (0-1.0); Neutrophils # (M) 1.24 k/uL (1.3-7.7); Neutrophils % (M) 31 %; Nucleated Red Blood Cells 0 /100 WBC (0-0); Reactive Lymphocytes Present; Total Cells Counted 100
== END | disposition home or self-care (01) ==
LOC: LABWHC1 15:59
PROVIDERS: ATTEND Obstetrics & Gynecology
DX: C56.2 Malignant neoplasm of left ovary (principal); C56.1 Malignant neoplasm of right ovary
CPT/HCPCS: 36415; 85025

== ENCOUNTER → 2018-08-07 | Outpatient (CLI) | payer BC ==
[2018-08-07 14:42] LABS: Anisocytosis Moderate; Basophils % (A) 0 %; Eosinophils # (A) 0.2 k/uL (0-0.7); Eosinophils % (A) 2 %; HCT 32.5 % (34.0-46.0); HGB 10.8 gm/dL (11.4-16.0); Lymphocytes # (A) 2.1 k/uL (1.0-4.8); Lymphocytes % (A) 14 %; MCH 32.7 pg (25.0-35.0); MCHC 33.2 g/dL (31.0-37.0); MCV 98.6 fL (80.0-100.0); Macrocytosis Moderate; Mean Platelet Volume 7.7; Monocytes # (A) 0.5 k/uL (0-1.0); Monocytes % (A) 4 %; Neutrophils # (A) 11.4 k/uL (1.3-7.7); Neutrophils % (A) 79 %; Platelet Count 277 k/uL (150-450); RDW 20.6 % (11.5-15.5); WBC 14.5 k/uL (3.8-10.6)
[2018-08-07 15:05] LABS: ALT 22 U/L (9-52); AST 24 U/L (14-36); Albumin 4.1 g/dL (3.5-5.0); Albumin/Globulin Ratio 1.6; Alkaline Phosphatase 96 U/L (38-126); Anion Gap 8 mmol/L; Blood Urea Nitrogen 19 mg/dL (7-17); Calcium 9.9 mg/dL (8.4-10.2); Carbon Dioxide 28 mmol/L (22-30); Chloride 102 mmol/L (98-107); Globulin 2.6 g/dL; Glucose 78 mg/dL (74-99); Magnesium 1.5 mg/dL (1.6-2.3); Potassium 4.1 mmol/L (3.5-5.1); Sodium 138 mmol/L (137-145); Total Bilirubin 0.2 mg/dL (0.2-1.3); Total Protein 6.7 g/dL (6.3-8.2)
== END | disposition home or self-care (01) ==
LOC: LABWHC1 14:08
PROVIDERS: ATTEND Obstetrics & Gynecology
DX: C56.1 Malignant neoplasm of right ovary (principal)
CPT/HCPCS: 36415; 80053; 83735; 85025; 86304

== ENCOUNTER → 2019-03-03 | Outpatient (CLI) | payer BC | LOC: LABWHC1 13:07 | PROVIDERS: ATTEND Obstetrics & Gynecology | DX: R06.02 Shortness of breath (principal) | CPT/HCPCS: 36415; 85025; 86850; 86900; 86901 ==

== ENCOUNTER → 2019-03-04 | Outpatient (CLI) | payer BC ==
[2019-03-03 14:34] LABS: Anisocytosis Moderate; Basophils % (A) 0 %; Eosinophils # (A) 0.1 k/uL (0-0.7); Eosinophils % (A) 3 %; HCT 22.9 % (34.0-46.0); HGB 7.7 gm/dL (11.4-16.0); Lymphocytes # (A) 1.1 k/uL (1.0-4.8); Lymphocytes % (A) 26 %; MCH 33.7 pg (25.0-35.0); MCHC 33.8 g/dL (31.0-37.0); MCV 99.6 fL (80.0-100.0); Macrocytosis Moderate; Mean Platelet Volume 8.2; Monocytes # (A) 0.3 k/uL (0-1.0); Monocytes % (A) 6 %; Neutrophils # (A) 2.7 k/uL (1.3-7.7); Neutrophils % (A) 61 %; Platelet Count 201 k/uL (150-450); RDW 22.3 % (11.5-15.5); WBC 4.4 k/uL (3.8-10.6)
[~2019-03-04] MED LIST: SODIUM CHLORIDE 0.9% 500 ML 500 ML in EMPTY BAG 1 BAG IV PRN
[2019-03-04 10:55] VITALS: RESP 16
[2019-03-04 13:09] VITALS: BP 119/71; PULSE 84; TEMP 98.3
== END | disposition home or self-care (01) ==
LOC: PROCWHC3 07:58
PROVIDERS: ATTEND Obstetrics & Gynecology
DX: C56.1 Malignant neoplasm of right ovary (principal); C56.2 Malignant neoplasm of left ovary; D50.8 Other iron deficiency anemias
CPT/HCPCS: 36415; 36430; 85025; 86850; 86900; 86901; 86920

== ENCOUNTER 2020-11-21 17:24 | Emergency (ER) | payer BC, MEDICARE ==
[2020-11-21 17:40] VITALS: TEMP 98.2
[2020-11-21] MEDS ORDERED: SODIUM CHLORIDE 0.9% 1,000 ML IV STA (18:39)
[2020-11-21 19:27] LABS: Anisocytosis Slight; Basophils % (A) 0 %; Eosinophils # (A) 0.1 k/uL (0-0.7); Eosinophils % (A) 1 %; HCT 28.3 % (34.0-46.0); HGB 9.1 gm/dL (11.4-16.0); Hypochromasia Slight; Lymphocytes # (A) 0.9 k/uL (1.0-4.8); Lymphocytes % (A) 8 %; MCH 28.2 pg (25.0-35.0); MCHC 32.2 g/dL (31.0-37.0); MCV 87.8 fL (80.0-100.0); Mean Platelet Volume 7.6; Monocytes # (A) 0.6 k/uL (0-1.0); Monocytes % (A) 6 %; Neutrophils # (A) 9.3 k/uL (1.3-7.7); Neutrophils % (A) 83 %; Platelet Count 535 k/uL (150-450); RBC 3.22 m/uL (3.80-5.40); RDW 18.2 % (11.5-15.5); WBC 11.2 k/uL (3.8-10.6)
[2020-11-21 19:38] LABS: ALT 11 U/L (4-34); AST 25 U/L (14-36); African American GFR (CKD) >90 (>60 ml/min/1.73 sqM); Albumin 2.9 g/dL (3.5-5.0); Alkaline Phosphatase 90 U/L (38-126); Blood Urea Nitrogen 16 mg/dL (7-17); Calcium 9.7 mg/dL (8.4-10.2); Carbon Dioxide 23 mmol/L (22-30); Chloride 98 mmol/L (98-107); Glucose 114 mg/dL (74-99); Non-African American GFR(CKD) >90 (>60 ml/min/1.73 sqM); Total Bilirubin 0.2 mg/dL (0.2-1.3); Total Protein 5.4 g/dL (6.3-8.2)
[2020-11-21 19:53] LABS: Anion Gap 7 mmol/L; Potassium 4.1 mmol/L (3.5-5.1); Sodium 128 mmol/L (137-145)
[2020-11-21] MEDS ORDERED: MAGNESIUM SULFATE-D5W PMX 1 GM in DEXTROSE/WATER 1 100ML.BAG IVPB ONE (19:58)
[2020-11-21] MEDS ORDERED: MAGNESIUM SULFATE-D5W PMX 1 GM in DEXTROSE/WATER 1 100ML.BAG IVPB SCH (20:00)
[2020-11-21] MEDS: MAGNESIUM SULFATE-D5W PMX 1 GM in DEXTROSE/WATER 1 100ML.BAG IVPB SCH ×2 (20:32→21:34)
[2020-11-21 20:35] VITALS: RESP 14
[2020-11-21 20:39] LABS: Appearance,Urine Clear (Clear); Bilirubin,Urine Negative (Negative); Blood,Urine Negative (Negative); Calcium Oxalate Crystals,Urine Few /hpf; Color,Urine Yellow; Glucose,Urine (UA) Negative (Negative); Hyaline Casts,Urine 3 /lpf (0-2); Ketones,Urine Negative (Negative); Leukocyte Esterase,Urine Trace (Negative); Mucus,Urine Many /hpf; Nitrite,Urine Negative (Negative); Protein,Urine Trace (Negative); RBC,Urine 1 /hpf (0-5); Specific Gravity,Urine 1.034 (1.001-1.035); Squamous Epithelial Cell,Urine 1 /hpf (0-4); WBC,Urine 10 /hpf (0-5)
[2020-11-21] MEDS ORDERED: NITROFURANTOIN MONOHYD/M-CRYST 100 MG CAP PO STA (20:46)
[2020-11-21] MEDS ORDERED: SODIUM CHLORIDE 0.9% 500 ML 500 ML IV STA (20:48)
--- NOTE | 2020-11-21 20:50 | ED ---
General Adult HPI - General Chief complaint: GI Bleed Stated complaint: blood in ostomy bag Time Seen by Provider: 11/21/20 18:30 Source: patient, RN notes reviewed, old records reviewed Mode of arrival: ambulatory Limitations: no limitations - History of Present Illness Initial comments: Patient is a 65-year-old female with past medical history of ovarian cancer and breast cancer currently on hospice presents emergency department over concern for a three-week history of bloody stools. Patient is on Xeralto for prior history of blood clots. She has been continuing to take this medication. She is been having bloody stools for the last 3 weeks and both of her ostomy bag as well as in the toilet. Patient does endorse some mild fatigue, however this is been a chronic process since starting on hospice some months ago. Family has noticed intermittent confusion as well. There've been no coughing. Patient denies any abdominal pain. Denies any chest pain, shortness of breath. She is alert and oriented 2-3 at this time. She states she has less of an appetite. She is mildly cachectic. She is no other acute complaint at this time. They called their hospice team to see if she is still hospice candidate she presents emergency Department, and it does appear to be the case. I will contact the myself to verify. - Related Data Home Medications Medication Instructions Recorded Confirmed Loratadine [Claritin] 10 mg PO DAILY 03/17/15 05/18/17 Calcium Citrate 1 tab PO DAILY 05/18/17 05/18/17 Cholecalciferol (Vitamin D3) 2,000 unit PO DAILY 05/18/17 05/18/17 [Vitamin D3] Magnesium 03/04/19 Metoprolol Succinate [Toprol XL] 25 mg PO DAILY 03/04/19 03/04/19 Rivaroxaban [Xarelto] 10 mg PO DAILY 03/04/19 03/04/19 lisinopriL [Zestril] 10 mg PO DAILY 03/04/19 03/04/19 Previous Rx's Medication Instructions Recorded Nitrofurantoin Monohyd/M-Cryst 100 mg PO Q12HR 5 Days #10 cap 11/21/20 [Macrobid] Allergies Allergy/AdvReac Type Severity Reaction Status Date / Time amoxicillin trihydrate Allergy Unknown Verified 11/21/20 17:40 [From Augmentin] potassium clavulanate Allergy Unknown Verified 11/21/20 17:40 [From Augmentin] Sulfa (Sulfonamide Allergy Unknown Verified 11/21/20 17:40 Antibiotics) Review of Systems ROS Statement: Those systems with pertinent positive or pertinent negative responses have been documented in the HPI. Review of Systems: CONST: Denies fever EYES: Denies blurry vision ENT: Denies nasal congestion C/V: Denies Chest pain RESP: Denies shortness of breath GI: Denies abdominal pain : Denies dysuria SKIN: Denies rash. MSK: Denies joint pain. NEURO: Denies headache ROS Other: All systems not noted in ROS Statement are negative. Past Medical History Past Medical History: Cancer, Hypertension Additional Past Medical History / Comment(s): OVARIAN CANCER, BREAST CANCER AND OVARIAN CANCER . History of Any Multi-Drug Resistant Organisms: None Reported Past Surgical History: Appendectomy, Bladder Surgery, Bowel Resection, Breast Surgery, Hysterectomy, Orthopedic Surgery Additional Past Surgical History / Comment(s): BOWEL AND BLADDER SURGERY D/T OVARIAN CANCER. CARPEL TUNNEL AND RIGHT SHOULDER SURGERY. Past Anesthesia/Blood Transfusion Reactions: Postoperative Nausea & Vomiting (PONV) Additional Past Anesthesia/Blood Transfusion Reaction / Comment(s): NEEDS SCOPALAMINE PATCH. Past Psychological History: No Psychological Hx Reported Smoking Status: Never smoker Past Alcohol Use History: None Reported Past Drug Use History: None Reported - Past Family History Father Family Medical History: Hyperlipidemia Mother Family Medical History: Cancer Additional Family Medical History / Comment(s): BREAST CANCER. General Exam - General Exam Comments Initial Comments: General: Appears in no acute distress. HEAD: Normal with no signs of head trauma. EYES: PERRLA, EOMI, conjunctiva normal, no discharge. Pupils are 3 mm and equal bilaterally. ENT: Hearing grossly intact, normal oropharynx. RESPIRATORY: Clear breath sounds bilaterally. No wheezes, rales, or rhonchi. C/V: Patient is mildly tachycardic with a regular rhythm. S1 and S2 are skin. Peripheral pulses are 2+ and intact. ABD: Abdomen soft, nondistended, nontender. Patient does have an ostomy bag with a small amount of melanotic stool in it. Patient also had a bowel movement with melanotic stool in it. EXT: Normal range of motion, no obvious deformity SKIN: No rashes or lesions observed on exposed skin. NEURO: Alert and oriented 2-3 which seems to be her baseline over the last weeks to months since starting hospice. No focal deficits at this time. Limitations: no limitations Course Vital Signs 11/21/20 11/21/20 11/21/20 17:37 20:25 21:00 Temperature 98.2 F Pulse Rate 107 H 105 H 102 H Respiratory 20 14 14 Rate Blood Pressure 84/59 89/63 95/61 O2 Sat by Pulse 100 100 100 Oximetry 11/21/20 11/21/20 22:21 22:42 Temperature Pulse Rate 94 98 Respiratory 14 14 Rate Blood Pressure 105/66 100/66 O2 Sat by Pulse 96 Oximetry Medical Decision Making - Medical Decision Making Based on the patient's presentation and physical exam, she is under also, is a hospice patient, does appear to be having some GI bleeding. I discussed at length with the patient's family the options for intervention. I wouldn't like to keep the patient on hospice due to her prognosis and they were in agreement with this plan. We agreed on no extraneous imaging or workouts. We will obtain basic laboratory studies including CBC, BMP, type and screen, and a urinalysis. She'll be given a 1 L fluid bolus while she is here in the department. They were in agreement with this plan. I discussed this with the patient's hospice team contacted at [phone], who stated that this is reasonable as it is not related to her cancer diagnosis. Once again, I spoke with the patient's family, particularly her was in agreement with this plan and agreed to no extraneous or extra workup or imaging at this time. We will continue to monitor the patient in the department for signs of decompensation, however her goal will be to discharge the patient home back and hospice care. Family was in agreement with this goal. I did advise that the patient stop using Xeralto. Based on the story, she has been having these melanotic stools for 3 weeks now, making it more or less chronic in nature. We discussed at length with the patient is not a candidate for GI endoscopy or surgical intervention at this time for any acute GI bleeding. Patient does have a chronic GI bleeding ongoing for multiple weeks. Hemoglobin is 9.1 following GI bleed for multiple weeks. This is within her normal baseline. Patient's laboratory studies are remarkable for a mild leukocytosis of 11.2. Patient has a normocytic anemia with a hemoglobin of 9.1. On comparison with prior hemoglobins, she typically runs anywhere from 8-11. Her most recent hemoglobin was 8.2 and this is improved from that time. This patient has been having melanotic stools for multiple weeks, her hemoglobin is likely around this level and I believe this is accurate. This is likely not an acute anemia. Patient's electrolytes are remarkable for a mild hyponatremia of 128 as well as a normal lactic acid. Patient's hypomagnesemia 1.0 which will be replenished with 2 g magnesium. Patient's urinalysis is concerning for a urinary tract infection and we will start her on antibiotics in the department. I conveyed this with the patient's family and they were in agreement this plan. Patient will be started on Macrobid. She'll be given a total of 1.5 L of fluid in the department and observed. They were in agreement with this plan.At this time it is the end of my shift. Patient will be sent with the oncoming emergency Department physician Dr. Duke with disposition pending reevaluation following completion of fluids and magnesium infusion. Patient was signed out in stable condition. Patient's blood pressure has been stable with a proper c uff in the high 90's systolic, with chronically lower blood pressures with systolics from 100-120. The goal is to be to discharge the patient home to continue her hospice care. Dr. Duke will re-evaluate and discharge home if appropriate. - Lab Data Result diagrams: 11/21/20 19:18 11/21/20 19:18 Lab Results 11/21/20 11/21/20 11/21/20 Range/Units 19:00 19:18 19:18 WBC 11.2 H (3.8-10.6) k/uL RBC 3.22 L (3.80-5.40) m/uL Hgb 9.1 L (11.4-16.0) gm/dL Hct 28.3 L (34.0-46.0) % MCV 87.8 (80.0-100.0) fL MCH 28.2 (25.0-35.0) pg MCHC 32.2 (31.0-37.0) g/dL RDW 18.2 H (11.5-15.5) % Plt Count 535 H (150-450) k/uL MPV 7.6 Neutrophils % 83 % Lymphocytes % 8 % Monocytes % 6 % Eosinophils % 1 % Basophils % 0 % Neutrophils # 9.3 H (1.3-7.7) k/uL Lymphocytes # 0.9 L (1.0-4.8) k/uL Monocytes # 0.6 (0-1.0) k/uL Eosinophils # 0.1 (0-0.7) k/uL Basophils # 0.0 (0-0.2) k/uL Hypochromasia Slight Anisocytosis Slight APTT 26.2 (22.0-30.0) sec Sodium (137-145) mmol/L Potassium (3.5-5.1) mmol/L Chloride (98-107) mmol/L Carbon Dioxide (22-30) mmol/L Anion Gap mmol/L BUN (7-17) mg/dL Creatinine (0.52-1.04) mg/dL Est GFR (CKD-EPI)AfAm (>60 ml/min/1.73 sqM) Est GFR (CKD-EPI)NonAf (>60 ml/min/1.73 sqM) Glucose (74-99) mg/dL Plasma Lactic Acid Rohan (0.7-2.0) mmol/L Calcium (8.4-10.2) mg/dL Magnesium (1.6-2.3) mg/dL Total Bilirubin (0.2-1.3) mg/dL AST (14-36) U/L ALT (4-34) U/L Alkaline Phosphatase (38-126) U/L Total Protein (6.3-8.2) g/dL Albumin (3.5-5.0) g/dL Urine Color Urine Appearance (Clear) Urine pH (5.0-8.0) Ur Specific [place] (1.001-1.035) Urine Protein (Negative) Urine Glucose (UA) (Negative) Urine Ketones (Negative) Urine Blood (Negative) Urine Nitrite (Negative) Urine Bilirubin (Negative) Urine Urobilinogen (<2.0) mg/dL Ur Leukocyte Esterase (Negative) Urine RBC (0-5) /hpf Urine WBC (0-5) /hpf Ur Squamous Epith Cells (0-4) /hpf Calcium Oxalate Crystal (None) /hpf Hyaline Casts (0-2) /lpf Urine Mucus (None) /hpf Blood Type O Positive Blood Type Recheck O Pos Bld Type Recheck Status No Antibody Screen NEGATIVE Spec Expiration Date 11/24/2020 - 229911/21/20 11/21/20 11/21/20 Range/Units 19:18 19:18 20:00 WBC (3.8-10.6) k/uL RBC (3.80-5.40) m/uL Hgb (11.4-16.0) gm/dL Hct (34.0-46.0) % MCV (80.0-100.0) fL MCH (25.0-35.0) pg MCHC (31.0-37.0) g/dL RDW (11.5-15.5) % Plt Count (150-450) k/uL MPV Neutrophils % % Lymphocytes % % Monocytes % % Eosinophils % % Basophils % % Neutrophils # (1.3-7.7) k/uL Lymphocytes # (1.0-4.8) k/uL Monocytes # (0-1.0) k/uL Eosinophils # (0-0.7) k/uL Basophils # (0-0.2) k/uL Hypochromasia Anisocytosis APTT (22.0-30.0) sec Sodium 128 L (137-145) mmol/L Potassium 4.1 (3.5-5.1) mmol/L Chloride 98 (98-107) mmol/L Carbon Dioxide 23 (22-30) mmol/L Anion Gap 7 mmol/L BUN 16 (7-17) mg/dL Creatinine 0.45 L (0.52-1.04) mg/dL Est GFR (CKD-EPI)AfAm >90 (>60 ml/min/1.73 sqM) Est GFR (CKD-EPI)NonAf >90 (>60 ml/min/1.73 sqM) Glucose 114 H (74-99) mg/dL Plasma Lactic Acid Rohan 1.2 (0.7-2.0) mmol/L Calcium 9.7 (8.4-10.2) mg/dL Magnesium 1.0 L (1.6-2.3) mg/dL Total Bilirubin 0.2 (0.2-1.3) mg/dL AST 25 (14-36) U/L ALT 11 (4-34) U/L Alkaline Phosphatase 90 (38-126) U/L Total Protein 5.4 L (6.3-8.2) g/dL Albumin 2.9 L (3.5-5.0) g/dL Urine Color Yellow Urine Appearance Clear (Clear) Urine pH 6.0 (5.0-8.0) Ur Specific [place] 1.034 (1.001-1.035) Urine Protein Trace H (Negative) Urine Glucose (UA) Negative (Negative) Urine Ketones Negative (Negative) Urine Blood Negative (Negative) Urine Nitrite Negative (Negative) Urine Bilirubin Negative (Negative) Urine Urobilinogen 2.0 (<2.0) mg/dL Ur Leukocyte Esterase Trace H (Negative) Urine RBC 1 (0-5) /hpf Urine WBC 10 H (0-5) /hpf Ur Squamous Epith Cells 1 (0-4) /hpf Calcium Oxalate Crystal Few H (None) /hpf Hyaline Casts 3 H (0-2) /lpf Urine Mucus Many H (None) /hpf Blood Type Blood Type Recheck Bld Type Recheck Status Antibody Screen Spec Expiration Date Disposition Clinical Impression: Hospice care patient, Dehydration, UTI (urinary tract infection), Chronic anemia, Hypomagnesemia Disposition: HOME SELF-CARE Condition: Stable Instructions (If sedation given, give patient instructions): Gastrointestinal Bleeding (ED), Urinary Tract Infection in Women (ED) Prescriptions: Nitrofurantoin Monohyd/M-Cryst [Macrobid] 100 mg PO Q12HR 5 Days #10 cap Is patient prescribed a controlled substance at d/c from ED?: No Referrals: Joe Parham MD [Primary Care Provider] - 1-2 days
[2020-11-21 22:44] VITALS: BP 100/66; PULSE 98
== END 2020-11-21 23:07 ==
LOC: EC 17:24
DX: Z51.5 Encounter for palliative care (principal); E86.0 Dehydration; N39.0 Urinary tract infection, site not specified; D64.9 Anemia, unspecified; E83.42 Hypomagnesemia; I10 Essential (primary) hypertension; Z88.2 Allergy status to sulfonamides; Z88.1 Allergy status to other antibiotic agents; Z85.3 Personal history of malignant neoplasm of breast; Z85.43 Personal history of malignant neoplasm of ovary; Z90.49 Acquired absence of other specified parts of digestive tract; Z90.710 Acquired absence of both cervix and uterus
CPT/HCPCS: 99284; 96365; 96366; 96361; 36415; 86900; 86901; 80053; 83605; 83735; 85025; 85730; 86850; 81001; J3475

== ENCOUNTER 2020-12-26 02:52 | Inpatient (IN) | payer BC, MEDICARE ==
--- NOTE | 2020-12-26 03:02 | ED ---
Recheck HPI - General Chief Complaint: Recheck/Abnormal Lab/Rx Stated Complaint: Abd Issues Time Seen by Provider: 12/26/20 02:55 Source: patient, EMS, RN notes reviewed, old records reviewed Mode of arrival: EMS Limitations: no limitations - History of Present Illness Initial Comments: This is a 65-year-old female to the emergency room today. Patient presents today for evaluation regards to severe weakness, patient is end-stage ovarian cancer recently taken off hospice. Patient has and is at bedside states he no longer physically and emotionally continue with patient's active dying at home and would like help in that process. Again patient is unable to provide history and unable to answer questions MD Complaint: wound re-check (She recently developed second ostomy) -: minutes(s) Initial Visit For: other (none) Returns Today for: Called Because of Abnormal Lab/Test Symptoms Since Prior Visit: no new symptoms Context: other (none) Associated Symptoms: none Treatments Prior to Arrival: other (none) - Related Data Home Medications Medication Instructions Recorded Confirmed Loratadine [Claritin] 10 mg PO DAILY 03/17/15 05/18/17 Calcium Citrate 1 tab PO DAILY 05/18/17 05/18/17 Cholecalciferol (Vitamin D3) 2,000 unit PO DAILY 05/18/17 05/18/17 [Vitamin D3] Magnesium 03/04/19 Metoprolol Succinate [Toprol XL] 25 mg PO DAILY 03/04/19 03/04/19 Rivaroxaban [Xarelto] 10 mg PO DAILY 03/04/19 03/04/19 lisinopriL [Zestril] 10 mg PO DAILY 03/04/19 03/04/19 Previous Rx's Medication Instructions Recorded Nitrofurantoin Monohyd/M-Cryst 100 mg PO Q12HR 5 Days #10 cap 11/21/20 [Macrobid] Allergies Allergy/AdvReac Type Severity Reaction Status Date / Time amoxicillin trihydrate Allergy Unknown Verified 12/26/20 03:01 [From Augmentin] potassium clavulanate Allergy Unknown Verified 12/26/20 03:01 [From Augmentin] Sulfa (Sulfonamide Allergy Unknown Verified 12/26/20 03:01 Antibiotics) Review of Systems ROS Statement: Those systems with pertinent positive or pertinent negative responses have been documented in the HPI. ROS Other: All systems not noted in ROS Statement are negative. Past Medical History Past Medical History: Cancer, Hypertension Additional Past Medical History / Comment(s): OVARIAN CANCER, BREAST CANCER AND OVARIAN CANCER . History of Any Multi-Drug Resistant Organisms: None Reported Past Surgical History: Appendectomy, Bladder Surgery, Bowel Resection, Breast Surgery, Hysterectomy, Orthopedic Surgery Additional Past Surgical History / Comment(s): BOWEL AND BLADDER SURGERY D/T OVARIAN CANCER. CARPEL TUNNEL AND RIGHT SHOULDER SURGERY. Past Anesthesia/Blood Transfusion Reactions: Postoperative Nausea & Vomiting (PONV) Additional Past Anesthesia/Blood Transfusion Reaction / Comment(s): NEEDS SCOPALAMINE PATCH. Past Psychological History: No Psychological Hx Reported Smoking Status: Never smoker Past Alcohol Use History: None Reported Past Drug Use History: None Reported - Past Family History Father Family Medical History: Hyperlipidemia Mother Family Medical History: Cancer Additional Family Medical History / Comment(s): BREAST CANCER. General Exam Limitations: no limitations, altered mental status, physical limitation General appearance: lethargic, cachectic Head exam: Present: atraumatic, normocephalic, normal inspection Eye exam: Present: normal appearance, PERRL, EOMI. Absent: scleral icterus, conjunctival injection, periorbital swelling ENT exam: Present: mucous membranes dry Neck exam: Present: normal inspection. Absent: tenderness, meningismus, lymphadenopathy Respiratory exam: Present: normal lung sounds bilaterally. Absent: respiratory distress, wheezes, rales, rhonchi, stridor Cardiovascular Exam: Present: normal rhythm, tachycardia, normal heart sounds. Absent: systolic murmur, diastolic murmur, rubs, gallop, clicks GI/Abdominal exam: Present: soft, normal bowel sounds. Absent: distended, tenderness, guarding, rebound, rigid Extremities exam: Present: normal inspection, full ROM, normal capillary refill. Absent: tenderness, pedal edema, joint swelling, calf tenderness Back exam: Present: normal inspection Neurological exam: Present: alert, oriented X3, CN II-XII intact Psychiatric exam: Present: normal affect, normal mood Skin exam: Present: warm, dry, intact, normal color. Absent: rash Course Vital Signs 12/26/20 02:58 Temperature 98.5 F Pulse Rate 105 H Respiratory 18 Rate Blood Pressure 97/45 O2 Sat by Pulse 100 Oximetry - Reevaluation(s) Reevaluation #1: 12/26/20 03:43 Medical record is reviewed Reevaluation #2: 12/26/20 03:43 Spoke with patient's at bedside at length, he is very emotional about his decision making in the caregiving grief that he is experiencing. Patient states he can no longer take care of the patient at home Medical Decision Making - Medical Decision Making 65 female DF for evaluation, significant failure to thrive with spontaneous abdominal wall ostomies, hypotension and dehydration. - Lab Data Result diagrams: 12/26/20 03:52 12/26/20 03:52 Disposition Clinical Impression: Hypotension, Abdominal fistula, Anemia, Hypokalemia, Leukocytosis Disposition: ADMITTED IP TO THIS HOSP Condition: Serious Is patient prescribed a controlled substance at d/c from ED?: No
[2020-12-26] MEDS ORDERED: SODIUM CHLORIDE 0.9% 1,000 ML IV STA ×2 (03:40)
[2020-12-26] MEDS ORDERED: ONDANSETRON 4 MG/2 ML VIAL IVP PRN (03:50)
[2020-12-26] MEDS ORDERED: NALOXONE 0.4 MG/ML 1 ML VIAL IV PRN (03:50)
[2020-12-26] MEDS: DEXTROSE 5%-0.45% NACL 1,000 ML IV SCH (04:05)
[2020-12-26 04:11] LABS: Anisocytosis Slight; Basophils # (A) 0.1 k/uL (0-0.2); Basophils % (A) 0 %; Eosinophils # (A) 0.2 k/uL (0-0.7); Eosinophils % (A) 1 %; HCT 24.8 % (34.0-46.0); Hypochromasia Marked; Lymphocytes # (A) 1.1 k/uL (1.0-4.8); Lymphocytes % (A) 6 %; MCH 25.3 pg (25.0-35.0); MCHC 28.7 g/dL (31.0-37.0); MCV 88.3 fL (80.0-100.0); Mean Platelet Volume 7.4; Monocytes % (A) 6 %; Neutrophils % (A) 85 %; Platelet Count 716 k/uL (150-450); Poikilocytosis Slight; RBC 2.81 m/uL (3.80-5.40); RDW 16.8 % (11.5-15.5); WBC 17.8 k/uL (3.8-10.6)
[2020-12-26 04:26] LABS: ALT 9 U/L (4-34); AST 21 U/L (14-36); African American GFR (CKD) >90 (>60 ml/min/1.73 sqM); Albumin 2.5 g/dL (3.5-5.0); Alkaline Phosphatase 67 U/L (38-126); Anion Gap 3 mmol/L; Blood Urea Nitrogen 16 mg/dL (7-17); Calcium 10.5 mg/dL (8.4-10.2); Carbon Dioxide 28 mmol/L (22-30); Chloride 96 mmol/L (98-107); Glucose 107 mg/dL (74-99); Magnesium 1.1 mg/dL (1.6-2.3); Non-African American GFR(CKD) >90 (>60 ml/min/1.73 sqM); Phosphorus 3.1 mg/dL (2.5-4.5); Potassium 4.3 mmol/L (3.5-5.1); Sodium 127 mmol/L (137-145); Total Bilirubin 0.2 mg/dL (0.2-1.3)
[2020-12-26 04:36] LABS: HGB 7.1 gm/dL (11.4-16.0)
[2020-12-26] MEDS: MAGNESIUM SULFATE-D5W PMX 1 GM in DEXTROSE/WATER 1 100ML.BAG IVPB SCH ×2 (06:04→07:05)
[2020-12-26] MEDS: PANTOPRAZOLE 40 MG/10 ML VIAL IV SCH (08:35)
[2020-12-26] MEDS: MORPHINE SULFATE 4 MG/ML SYRINGE IV PRN ×2 (08:35→13:45)
--- NOTE | 2020-12-26 20:02 | P.HPIM ---
History of Present Illness H&P Date: 12/26/20 Chief Complaint: Weakness 65-year-old female to the emergency room today. Patient presents today for evaluation regards to severe weakness, patient is end-stage ovarian cancer recently taken off hospice. Patient's is at bedside states he no longer physically and emotionally continue with patient's active dying at home and would like help in that process. Again patient is unable to provide history and unable to answer questions Workup in ED reveals it WBC count of 17.8, hemoglobin 7.1, platelet count of 716, sodium 127, BUN/creatinine of 16/0.38 and a blood glucose of 107 Review of Systems ROS unobtainable: due to mental status Past Medical History Past Medical History: Cancer, Hypertension Additional Past Medical History / Comment(s): OVARIAN CANCER, BREAST CANCER AND OVARIAN CANCER . History of Any Multi-Drug Resistant Organisms: None Reported Past Surgical History: Appendectomy, Bladder Surgery, Bowel Resection, Breast Surgery, Hysterectomy, Orthopedic Surgery Additional Past Surgical History / Comment(s): BOWEL AND BLADDER SURGERY D/T OVARIAN CANCER. CARPEL TUNNEL AND RIGHT SHOULDER SURGERY. Past Anesthesia/Blood Transfusion Reactions: Postoperative Nausea & Vomiting (PONV) Additional Past Anesthesia/Blood Transfusion Reaction / Comment(s): NEEDS SCOPALAMINE PATCH. Past Psychological History: No Psychological Hx Reported Smoking Status: Never smoker Past Alcohol Use History: None Reported Past Drug Use History: None Reported - Past Family History Father Family Medical History: Hyperlipidemia Mother Family Medical History: Cancer Additional Family Medical History / Comment(s): BREAST CANCER. Medications and Allergies Home Medications Medication Instructions Recorded Confirmed Type Metoprolol Succinate [Toprol XL] 25 mg PO DAILY 03/04/19 12/26/20 History Albuterol Nebulized [Ventolin 2.5 mg INHALATION RT-BID PRN 12/26/20 12/26/20 History Nebulized] Aspirin EC [Ecotrin Low Dose] 81 mg PO DAILY 12/26/20 12/26/20 History Cephalexin [Keflex] 500 mg PO BID 12/26/20 12/26/20 History Famotidine [Pepcid] 40 mg PO HS 12/26/20 12/26/20 History Multivit-Min/Iron/Folic/Lutein 1 tab PO DAILY 12/26/20 12/26/20 History [Centrum Silver Women Tablet] Omeprazole Magnesium [PriLOSEC OTC] 20 mg PO DAILY 12/26/20 12/26/20 History Zolpidem [Ambien] 5 mg PO HS PRN 12/26/20 12/26/20 History oxyCODONE-APAP 5-325MG [Percocet 1 tab PO Q4HR PRN 12/26/20 12/26/20 History 5-325 mg] Allergies Allergy/AdvReac Type Severity Reaction Status Date / Time amoxicillin trihydrate Allergy Unknown Verified 12/26/20 08:12 [From Augmentin] potassium clavulanate Allergy Unknown Verified 12/26/20 08:12 [From Augmentin] Sulfa (Sulfonamide Allergy Unknown Verified 12/26/20 08:12 Antibiotics) Physical Exam Vitals: Vital Signs Temp Pulse Resp BP Pulse Ox 12/26/20 16:40 88 16 107/49 100 12/26/20 15:00 18 94/56 100 12/26/20 14:00 90 18 94/56 100 12/26/20 13:00 90 18 100 12/26/20 12:00 90 18 106/66 100 12/26/20 11:00 90 18 100 12/26/20 10:00 91 18 100 12/26/20 09:00 93 18 100 12/26/20 08:00 97.2 F L 98 18 99/82 100 12/26/20 06:00 88 22 101/59 97 12/26/20 05:00 99 16 99/44 95 12/26/20 02:58 98.5 F 105 H 18 97/45 100 Intake and Output 12/26/20 12/26/20 12/26/20 06:59 14:59 22:59 Other: Weight 45.359 kg PHYSICAL EXAMINATION: GENERAL: The patient is alert; malnourished and gynecomastia did. HEENT: Pupils are round and equally reacting to light. EOMI. No scleral icterus. No conjunctival pallor. Normocephalic, atraumatic. No pharyngeal erythema. No thyromegaly. CARDIOVASCULAR: S1 and S2 present. No murmurs, rubs, or gallops. PULMONARY: Chest is clear to auscultation, no wheezing or crackles. ABDOMEN: Soft, nontender, nondistended, normoactive bowel sounds. No palpable organomegaly. MUSCULOSKELETAL: No joint swelling or deformity. EXTREMITIES: No cyanosis, clubbing, or pedal edema. NEUROLOGICAL: Gross neurological examination did not reveal any focal deficits. SKIN: No rashes. Results CBC & Chem 7: 12/26/20 03:52 12/26/20 03:52 Labs: Abnormal Lab Results - Last 24 Hours (Table) 12/26/20 12/26/20 Range/Units 03:52 03:52 WBC 17.8 H (3.8-10.6) k/uL RBC 2.81 L (3.80-5.40) m/uL Hgb 7.1 L D (11.4-16.0) gm/dL Hct 24.8 L (34.0-46.0) % MCHC 28.7 L (31.0-37.0) g/dL RDW 16.8 H (11.5-15.5) % Plt Count 716 H (150-450) k/uL Neutrophils # 15.0 H (1.3-7.7) k/uL Sodium 127 L (137-145) mmol/L Chloride 96 L (98-107) mmol/L Creatinine 0.38 L (0.52-1.04) mg/dL Glucose 107 H (74-99) mg/dL Calcium 10.5 H (8.4-10.2) mg/dL Magnesium 1.1 L (1.6-2.3) mg/dL Total Protein 5.0 L (6.3-8.2) g/dL Albumin 2.5 L (3.5-5.0) g/dL Assessment and Plan Assessment: 1. Leukocytosis/sepsis - Patient has end-stage ovarian cancer and has multiple abdominal fistulous; source of infection is possibly intra-abdominal - Patient's is undecided about goals of care; patient has been placed on IV antibiotics to further decision is made about pursuing treatment versus hospice 2. Adult failure to thrive; patient is visibly to macerated and malnourished; has advanced stage ovarian cancer; has been placed and taken off of hospice multiple times; patient has difficulty coping with active dying process and is reaching out for help so patient can be placed in the hospital and placed on hospice; we will reconsult hospice and social work 3. Hyponatremia; slow IV fluid hydration with normal saline; monitor electrolytes 4. Severe anemia; possibly related to malnutrition; no evident bleeding 5. Hypertension; continue with home antihypertensive therapy DVT prophylaxis; SCDs; no heparin due to anemia CODE STATUS; DO NOT RESUSCITATE
[2020-12-27] MEDS: DEXTROSE 5%-0.45% NACL 1,000 ML IV SCH (01:21)
[2020-12-27 01:27] LABS: Glucose,Whole Blood 120 mg/dL (75-99)
[2020-12-27] MEDS: PANTOPRAZOLE 40 MG/10 ML VIAL IV SCH (13:11)
--- NOTE | 2020-12-27 15:38 | P.PN ---
Subjective 12/27/2020 Had a lengthy discussion with the . Is concerned patient may have a new stroke as patient is having weakness in the right side. Patient and family were told there are no more options regarding chemotherapy. I counseled at length and spend more than 35 minutes discussing the reasoning Behind hospice and prognosis with the patient. cannot take care of the patient anymore at home hospice services will be consulted for options regarding hospice at home versus at a facility. I'll also consult oncology to reevaluate for any other chemotherapeutic options as per the request of the . Review of systems: Patient doesn't do much of the history. All inpatient medications were reviewed and appropriate changes in these medications as dictated in the interval history and assessment and plan. PHYSICAL EXAMINATION: GENERAL: Mostly doesn't provide any history thin built cachectic female HEENT: Pupils are round and equally reacting to light. EOMI. No scleral icterus. No conjunctival pallor. Normocephalic, atraumatic. No pharyngeal erythema. No thyromegaly. CARDIOVASCULAR: S1 and S2 present. No murmurs, rubs, or gallops. PULMONARY: Chest is clear to auscultation, no wheezing or crackles. ABDOMEN: Soft, nontender, nondistended, normoactive bowel sounds. No palpable organomegaly. MUSCULOSKELETAL: No joint swelling or deformity. EXTREMITIES: No cyanosis, clubbing, or pedal edema. NEUROLOGICAL: Weakness in the right side of the body significant muscle atrophy bilaterally. SKIN: No rashes. Assessment and plan Severe dehydration -failure to thrive -Ovarian cancer metastatic disease -Weakness in the right side of the body subacute weakness most probably metastatic disease -Hypervolemic hyponatremia -Hypertension -Multiple abdominal fistulous -Leukocytosis secondary to fistulous Plan: As discussed above considering patient's poor prognosis patient was in and out of hospice after lengthy discussion with the family, decision was made to consult hospice services so that family can evaluate options of hospice. Objective - Vital Signs Vital signs: Vital Signs Temp 98.3 F 12/27/20 13:14 Pulse 87 12/27/20 13:14 Resp 14 12/27/20 13:14 BP 104/65 12/27/20 13:14 Pulse Ox 95 12/27/20 13:14 Intake & Output 12/26/20 12/27/20 12/27/20 18:59 06:59 18:59 Weight 54.204 kg Other: Voiding Method Incontinent - Labs CBC & Chem 7: 12/26/20 03:52 12/26/20 03:52 Labs: Abnormal Lab Results - Last 24 Hours (Table) 12/27/20 Range/Units 01:25 POC Glucose (mg/dL) 120 H (75-99) mg/dL
--- NOTE | 2020-12-27 16:01 | CDI ---
Documentation Clarification Form Date: 12/27/2020 03:43:59 PM From: Cindi Brewster RN CCDS Admit Date: 12/26/2020 03:50:00 AM Patient Name: Marzena Casanova Visit Number: [id number] Discharge Date: ATTENTION: The Clinical Documentation Specialists (CDI) and [facility] Coding Staff appreciate your assistance in clarifying documentation. Please respond to the clarification below the line at the bottom and electronically sign. The CDI & [facility] Coding staff will review the response and follow-up if needed. Please note: Queries are made part of the Legal Health Record. If you have any questions, please contact the author of this message via ITS. Dr. Alfred Malnutrition is documented 12/26, H&P. Additional clarification regarding the severity of malnutrition is requested. History/Risk Factors: 65-year-old female presents to the ED for evaluation of severe weakness. Medical History: HTN and End-stage ovarian cancer recently taken off hospice. 12/26, H&P Clinical Indicators: Current BMI: 18.7 12/26, H&P The patient is alert: malnourished and gynecomastia did. Adult failure to thrive; patient is visibly to macerated and malnourished has been placed and taken off of hospice multiple times. Labs: 12/26 Hgb 7.1, Wbc 17.8, Neutrophils 15.0, Na 127, Chl 96, cr 0.38, Calcium 10.5, Mag 1.1, Total protein 5.0, albumin 2.5. Please clarify the type of malnutrition, if known: [x ] Moderate Protein-Calorie Malnutrition [ ] Severe Protein-Calorie Malnutrition [ ] Other condition, please specify [ ] Unable to Determine (Template Last Revised: May 2020) MTDD
[2020-12-27] MEDS: MAGNESIUM SULFATE-D5W PMX 1 GM in DEXTROSE/WATER 1 100ML.BAG IVPB SCH ×3 (16:47→19:12)
[2020-12-27] MEDS: SODIUM CHLORIDE 0.9% 1,000 ML IV SCH (16:48)
[2020-12-28] MEDS: DEXTROSE 5%-0.45% NACL 1,000 ML IV SCH (03:44)
[2020-12-28] MEDS ORDERED: Magnesium Replacement Protocol 1 EACH MISC MISCELLANE PRN (06:42)
[2020-12-28] MEDS ORDERED: DEXTROSE 5%-0.9% NACL 1,000 ML IV SCH (06:45)
[2020-12-28 07:00] LABS: Anisocytosis Slight; Basophils % (A) 0 %; Eosinophils # (A) 0.2 k/uL (0-0.7); Eosinophils % (A) 1 %; HGB 7.3 gm/dL (11.4-16.0); Hypochromasia Marked; Lymphocytes # (A) 1.1 k/uL (1.0-4.8); Lymphocytes % (A) 6 %; MCH 25.3 pg (25.0-35.0); MCV 87.3 fL (80.0-100.0); Mean Platelet Volume 7.5; Monocytes % (A) 6 %; Neutrophils # (A) 14.6 k/uL (1.3-7.7); Neutrophils % (A) 85 %; Platelet Count 823 k/uL (150-450); Poikilocytosis Slight; RBC 2.87 m/uL (3.80-5.40); RDW 16.7 % (11.5-15.5); WBC 17.2 k/uL (3.8-10.6)
[2020-12-28 07:16] LABS: African American GFR (CKD) >90 (>60 ml/min/1.73 sqM); Anion Gap 5 mmol/L; Blood Urea Nitrogen 5 mg/dL (7-17); Calcium 10.2 mg/dL (8.4-10.2); Carbon Dioxide 22 mmol/L (22-30); Chloride 98 mmol/L (98-107); Glucose 106 mg/dL (74-99); Magnesium 1.6 mg/dL (1.6-2.3); Non-African American GFR(CKD) >90 (>60 ml/min/1.73 sqM); Potassium 3.6 mmol/L (3.5-5.1); Sodium 125 mmol/L (137-145)
[2020-12-28 07:48] LABS: C Reactive Protein 5.2 mg/dL (<1.0)
[2020-12-28 08:01] VITALS: RESP 24
[2020-12-28] MEDS ORDERED: MEGESTROL 400 MG/10 ML CUP PO SCH (09:00)
[2020-12-28] MEDS: SODIUM CHLORIDE 0.9% 1,000 ML IV SCH (09:56)
[2020-12-28] MEDS: PANTOPRAZOLE 40 MG/10 ML VIAL IV SCH (10:00)
[2020-12-28] MEDS: MAGNESIUM SULFATE-D5W PMX 1 GM in DEXTROSE/WATER 1 100ML.BAG IVPB SCH ×3 (10:01→13:04)
--- NOTE | 2020-12-28 10:53 | CDI ---
Documentation Clarification Form Date: 12/28/2020 10:36:36 AM From: Cindi Brewster RN CCDS Admit Date: 12/26/2020 03:50:00 AM Patient Name: Marzena Casanova Visit Number: [id number] Discharge Date: ATTENTION: The Clinical Documentation Specialists (CDI) and [facility] Coding Staff appreciate your assistance in clarifying documentation. Please respond to the clarification below the line at the bottom and electronically sign. The CDI & [facility] Coding staff will review the response and follow-up if needed. Please note: Queries are made part of the Legal Health Record. If you have any questions, please contact the author of this message via ITS. Dr. Joe Parham Sepsis is documented H&P, 12/26, but is not noted in subsequent documentation. Clarification is requested. History/Risk Factors: 65-year-old female presents to the ED for evaluation of severe weakness. Medical history: End stage Ovarian cancer recently taken off hospice, Breast CA and HTN. Clinical Indicators: VSS: 12/26 B/P 97/45, HR 105, Temp 98.5 F, RR 18, SpO2 100%ra Labs: 12/26 Wbc 17.8, Hgb 7.1, Neutrophils 15.0, Na 127, Calcium 10.5, Mag 1.1, Total protein 5.0, Albumin 2.5. 12/26: H&P Leukocytosis / sepsis Patient has end-stage ovarian cancer and has multiple abdominal fistulous source of infection is possibly intra-abdominal. Treatment: 12/26 Ceftriaxone Sodium 2gm IVPB x 1, 12/26 to current Ceftriaxone Sodium 1gm IVPB Q12H. 12/26 0.9NS 1L bolus x 1, 12/26 to current 0.9NS 130cc/hr. Please clarify if the Sepsis is: [ ] Sepsis confirmed, remains under treatment [ ] Sepsis confirmed, resolved [ X ] Sepsis ruled out [ ] Other condition, please specify [ ] Unable to determine (Template Last Revised: May 2020) MTDD
[2020-12-28] MEDS: MORPHINE SULFATE 4 MG/ML SYRINGE IV PRN (11:17)
[2020-12-28 11:28] VITALS: BMI 18.7
--- NOTE | 2020-12-28 12:53 | P.CONS ---
History of Present Illness - Reason for Consult Consult date: 12/28/20 wound care - History of Present Illness This is a 65-year-old female with end-stage ovarian cancer who was recently discharged from hospice. Patient was brought to the emergency room by her due to difficulty in managing care at home. They're looking for possible stress readmission. Patient has 2 ulcerations to the abdomen one midline and the second one in the right lower quadrant. states that the midline ulceration started approximately one month ago and is slowly getting better. There is no drainage to the site. The second ulceration opened approximately 2 days ago with significant amount of coffee tinged drainage. At this time they have ostomy bags in place to assist with the drainage. The patient does not have any history of colostomy. The midline ulceration measures approximately 1 x 1 x 0.2 cm with fat layer exposure no drainage noted to the site. There is granulation seen within the wound bed and minimal slough. The right lower quadrant ulceration has significant amount of drainage that is coffee tinged. Unable to assess the size of the ulceration due to the ostomy bag in place. Review Of Systems: Constitutional: No fever, no chills, no night sweats. No weight change. No weakness, fatigue or lethargy. No daytime sleepiness. Integumentary:reports wounds, no lesions. No rash or pruritus. No unusual bruising. No change in hair or nails. Physical exam: General Appearance: Alert, cooperative, no distress, appears stated age. Skin: See HPI all other Skin color, texture, tugor normal, no rashes or lesions. Neurologic: Alert oriented x3 Assessment: 1. Nonhealing ulceration of fat layer exposure to multiple sites of the abdomen 2. Failure to thrive 3. Ovarian CA Plan: 1.Medial abdomen ulceration: absorptive silver, ABD and paper tape to secure, lateral ulceration continue to ultilze colostomy bag. Thank you for the consultation any questions because contact the wound care center DNP note has been reviewed and discussed with Dr. Ackerman and the impression and plan of care has been directed as dictated. Past Medical History Past Medical History: Cancer, Hypertension Additional Past Medical History / Comment(s): BREAST CANCER AND OVARIAN CANCER, hayfever History of Any Multi-Drug Resistant Organisms: None Reported Past Surgical History: Appendectomy, Bladder Surgery, Bowel Resection, Breast Surgery, Hysterectomy, Orthopedic Surgery Additional Past Surgical History / Comment(s): BOWEL AND BLADDER SURGERY D/T OVARIAN CANCER. CARPEL TUNNEL AND RIGHT SHOULDER SURGERY. Past Anesthesia/Blood Transfusion Reactions: Postoperative Nausea & Vomiting (PONV) Additional Past Anesthesia/Blood Transfusion Reaction / Comm: NEEDS SCOPALAMINE PATCH. Past Psychological History: No Psychological Hx Reported Smoking Status: Never smoker Past Alcohol Use History: None Reported Past Drug Use History: None Reported - Past Family History Father Family Medical History: Hyperlipidemia Mother Family Medical History: Cancer Additional Family Medical History / Comment(s): BREAST CANCER. Medications and Allergies Home Medications Medication Instructions Recorded Confirmed Type Metoprolol Succinate [Toprol XL] 25 mg PO DAILY 03/04/19 12/26/20 History Albuterol Nebulized [Ventolin 2.5 mg INHALATION RT-BID PRN 12/26/20 12/26/20 History Nebulized] Aspirin EC [Ecotrin Low Dose] 81 mg PO DAILY 12/26/20 12/26/20 History Cephalexin [Keflex] 500 mg PO BID 12/26/20 12/26/20 History Famotidine [Pepcid] 40 mg PO HS 12/26/20 12/26/20 History Multivit-Min/Iron/Folic/Lutein 1 tab PO DAILY 12/26/20 12/26/20 History [Centrum Silver Women Tablet] Omeprazole Magnesium [PriLOSEC OTC] 20 mg PO DAILY 12/26/20 12/26/20 History Zolpidem [Ambien] 5 mg PO HS PRN 12/26/20 12/26/20 History oxyCODONE-APAP 5-325MG [Percocet 1 tab PO Q4HR PRN 12/26/20 12/26/20 History 5-325 mg] Allergies Allergy/AdvReac Type Severity Reaction Status Date / Time amoxicillin trihydrate Allergy Unknown Verified 12/26/20 08:12 [From Augmentin] potassium clavulanate Allergy Unknown Verified 12/26/20 08:12 [From Augmentin] Sulfa (Sulfonamide Allergy Unknown Verified 12/26/20 08:12 Antibiotics) Physical Exam Vitals: Vital Signs Temp Pulse Resp BP Pulse Ox 12/28/20 08:00 97.4 F L 51 L 24 105/68 96 12/28/20 02:00 98.8 F 105 H 18 113/62 99 12/27/20 20:40 103 H 16 10/25/21 20:00 98.3 F 103 H 16 115/77 100 12/27/20 13:14 98.3 F 87 14 104/65 95 Intake and Output 12/27/20 12/28/20 12/28/20 22:59 06:59 14:59 Output Total 200 Balance -200 Output: Gastric Drainage 200 Other: Voiding Method Incontinent Incontinent # Voids 3 1 # Bowel Movements 1 1 Weight 54.204 kg Results CBC & Chem 7: 12/28/20 06:17 12/28/20 06:17 Labs: Abnormal Lab Results - Last 24 Hours (Table) 12/28/20 12/28/20 12/28/20 Range/Units 06:17 06:17 06:17 WBC 17.2 H (3.8-10.6) k/uL RBC 2.87 L (3.80-5.40) m/uL Hgb 7.3 L (11.4-16.0) gm/dL Hct 25.0 L (34.0-46.0) % MCHC 29.0 L (31.0-37.0) g/dL RDW 16.7 H (11.5-15.5) % Plt Count 823 H (150-450) k/uL Neutrophils # 14.6 H (1.3-7.7) k/uL Sodium 125 L (137-145) mmol/L BUN 5 L (7-17) mg/dL Creatinine 0.32 L (0.52-1.04) mg/dL Glucose 106 H (74-99) mg/dL C-Reactive Protein 5.2 H (<1.0) mg/dL Procalcitonin 0.12 H (0.02-0.09) ng/mL Assessment and Plan (1) Non-pressure chronic ulcer of skin of other sites with fat layer exposed Current Visit: Yes Status: Acute Code(s): L98.492 - NON-PRS CHRONIC ULCER OF SKIN OF SITES W FAT LAYER EXPOSED SNOMED Code(s): 00538187 (2) Abdominal fistula Current Visit: Yes Status: Acute Code(s): K63.2 - FISTULA OF INTESTINE SNOMED Code(s): 067310903 (3) Failure to thrive in adult Current Visit: Yes Status: Acute Code(s): R62.7 - ADULT FAILURE TO THRIVE SNOMED Code(s): 916863612
[2020-12-28 14:05] VITALS: BP 138/82; PULSE 98; TEMP 96.2
--- NOTE | 2020-12-28 15:14 | P.CONS ---
History of Present Illness - Reason for Consult Consult date: 12/28/20 Ovarian cancer Requesting physician: Yao Alfred - Chief Complaint hypotension, fistula - History of Present Illness Pt is a very unfortunate 65 yo female who was brought to hospital by her who provides history. She was diagnosed in 2004 with ovarian cancer and has received multiple treatments and had numerous surgeries over the years at [facility]. In September 2020 treatment options ran out and pt was placed on palliative care with transition to hospice. Pt developed a spontaneous fistula that was treated by applying an ostomy collection device. Pt has developed another fistula near the previous one and is just wanting some care for it prior to admission to hospice house. Pt is not responsive during conversation does not respond to exam Review of Systems Per proxy, pt is not responsive Past Medical History Past Medical History: Cancer, Hypertension Additional Past Medical History / Comment(s): BREAST CANCER AND OVARIAN CANCER, hayfever History of Any Multi-Drug Resistant Organisms: None Reported Past Surgical History: Appendectomy, Bladder Surgery, Bowel Resection, Breast Surgery, Hysterectomy, Orthopedic Surgery Additional Past Surgical History / Comment(s): BOWEL AND BLADDER SURGERY D/T OVARIAN CANCER. CARPEL TUNNEL AND RIGHT SHOULDER SURGERY. Past Anesthesia/Blood Transfusion Reactions: Postoperative Nausea & Vomiting (PONV) Additional Past Anesthesia/Blood Transfusion Reaction / Comm: NEEDS SCOPALAMINE PATCH. Past Psychological History: No Psychological Hx Reported Smoking Status: Never smoker Past Alcohol Use History: None Reported Past Drug Use History: None Reported - Past Family History Father Family Medical History: Hyperlipidemia Mother Family Medical History: Cancer Additional Family Medical History / Comment(s): BREAST CANCER. Medications and Allergies Home Medications Medication Instructions Recorded Confirmed Type Metoprolol Succinate [Toprol XL] 25 mg PO DAILY 03/04/19 12/26/20 History Albuterol Nebulized [Ventolin 2.5 mg INHALATION RT-BID PRN 12/26/20 12/26/20 History Nebulized] Aspirin EC [Ecotrin Low Dose] 81 mg PO DAILY 12/26/20 12/26/20 History Cephalexin [Keflex] 500 mg PO BID 12/26/20 12/26/20 History Famotidine [Pepcid] 40 mg PO HS 12/26/20 12/26/20 History Multivit-Min/Iron/Folic/Lutein 1 tab PO DAILY 12/26/20 12/26/20 History [Centrum Silver Women Tablet] Omeprazole Magnesium [PriLOSEC OTC] 20 mg PO DAILY 12/26/20 12/26/20 History Zolpidem [Ambien] 5 mg PO HS PRN 12/26/20 12/26/20 History oxyCODONE-APAP 5-325MG [Percocet 1 tab PO Q4HR PRN 12/26/20 12/26/20 History 5-325 mg] Allergies Allergy/AdvReac Type Severity Reaction Status Date / Time amoxicillin trihydrate Allergy Unknown Verified 12/26/20 08:12 [From Augmentin] potassium clavulanate Allergy Unknown Verified 12/26/20 08:12 [From Augmentin] Sulfa (Sulfonamide Allergy Unknown Verified 12/26/20 08:12 Antibiotics) Physical Exam Vitals: Vital Signs Temp Pulse Pulse Resp BP Pulse Ox 12/28/20 13:09 96.2 F L 98 138/82 100 12/28/20 08:00 97.4 F L 51 L 24 105/68 96 12/28/20 02:00 98.8 F 105 H 18 113/62 99 12/27/20 20:40 103 H 16 12/27/20 20:00 98.3 F 103 H 16 115/77 100 Intake and Output 12/28/20 12/28/20 12/28/20 06:59 14:59 22:59 Output Total 200 Balance -200 Output: Gastric Drainage 200 Other: Voiding Method Incontinent # Voids 3 1 # Bowel Movements 1 Weight 54.204 kg - Constitutional General appearance: no acute distress, thin - Respiratory Respiratory: bilateral: diminished - Cardiovascular Rhythm: regular Heart sounds: normal: S1, S2 - Gastrointestinal abd is firm, rigid in areas, 2 ostomy bags for fistulas - Integumentary Integumentary: pale - Musculoskeletal Musculoskeletal: right sided weakness - Psychiatric Psychiatric: no A&O x's 3, no appropriate affect, no intact judgment & insight Results CBC & Chem 7: 12/28/20 06:17 12/28/20 06:17 Labs: Abnormal Lab Results - Last 24 Hours (Table) 12/28/20 12/28/20 12/28/20 Range/Units 06:17 06:17 06:17 WBC 17.2 H (3.8-10.6) k/uL RBC 2.87 L (3.80-5.40) m/uL Hgb 7.3 L (11.4-16.0) gm/dL Hct 25.0 L (34.0-46.0) % MCHC 29.0 L (31.0-37.0) g/dL RDW 16.7 H (11.5-15.5) % Plt Count 823 H (150-450) k/uL Neutrophils # 14.6 H (1.3-7.7) k/uL Sodium 125 L (137-145) mmol/L BUN 5 L (7-17) mg/dL Creatinine 0.32 L (0.52-1.04) mg/dL Glucose 106 H (74-99) mg/dL C-Reactive Protein 5.2 H (<1.0) mg/dL Procalcitonin 0.12 H (0.02-0.09) ng/mL Assessment and Plan (1) Abdominal fistula Current Visit: Yes Status: Acute Priority: High Code(s): K63.2 - FISTULA OF INTESTINE SNOMED Code(s): 459138703 (2) Ovarian malignant neoplasm Current Visit: Yes Status: Chronic Priority: High Code(s): C56.9 - MALIGNANT NEOPLASM OF UNSPECIFIED OVARY SNOMED Code(s): 314327966 Plan: Dr. Martinez reviewed that due to burden of disease in the abd spontaneous fistulas may cont to open up as a way of releasing fluids. Suspect CVA as rt extremities are weak and rt facial droop is noted. With open fistulas, possibility of more developing fistulas and heavy disease in the abd risk of bleeding is very significant. No amount of medical intervention is going to change pt outcome. Pt is acutely aware of his spouses dire circumstances. He is prepared for hospice. Agree with DC to hospice house once pt treated and bed is available. attests: I have seen and examined pt, performed H&P, developed impression and plan of care. Discussed with dictator. Agree with documentation, documented as a scribe.
--- NOTE | 2020-12-28 17:12 | P.DS ---
Providers Date of admission: 12/26/20 03:50 Expected date of discharge: 12/28/20 Attending physician: Joe Parham Consults: 12/27/20 15:35 Consult Physician Routine Consulting Provider: Niko Martinez Consult Reason/Comments: Ovarian cancer evaluate options and prognosis Do you want consulting provider notified?: Yes Primary care physician: Joe Parham Hospital Course: 65-year-old female was admitted to the hospital for leukocytosis, hyponatremia, severe anemia, and hypertension. Patient recently taken off hospice care to come to the hospital for further treatment of ongoing multiple abdominal fistulous and generalized weakness. Patient had extensive diagnostic workup in the hospital CBCs with leukocytosis with a left shift, severe anemia with a hemoglobin of 7.1 and hematocrit of 24.8; CMP hyponatremic with a sodium 125. Pro-calcitonin was mildly elevated at 0.12. Patient was seen by hematology oncology, wound care, and general medicine. had lengthy discussion with hematology oncology regarding treatment plans for metastatic ovarian cancer, patient and agreeable to treatment plan of hospice. Patient will be discharged in critical condition under hospice care. Assessment: Metastatic ovarian cancer Leukocytosis, multiple sources abdominal fistulas Hyponatremia Severe anemia Hypertension DO NOT RESUSCITATE Final diagnosis Metastatic ovarian cancer Leukocytosis, possibly due to multiple sources of abdominal fistulas Hyponatremia, improved with IV hydration Severe anemia secondary to metastatic ovarian cancer Transfer to hospice care Health Concerns: Comorbidities Complexity of medical treatment plan Transfer to hospice Pertinent Studies: No significant imaging or diagnostic testing during hospital stay Procedures: No procedures performed during hospital stay Patient Condition at Discharge: Serious Plan - Discharge Summary Discharge Rx Participant: Yes New Discharge Prescriptions: Continue Multivit-Min/Iron/Folic/Lutein [Centrum Silver Women Tablet] 1 tab PO DAILY Famotidine [Pepcid] 40 mg PO HS Cephalexin [Keflex] 500 mg PO BID Zolpidem [Ambien] 5 mg PO HS PRN PRN Reason: Insomnia oxyCODONE-APAP 5-325MG [Percocet 5-325 mg] 1 tab PO Q4HR PRN PRN Reason: Pain Albuterol Nebulized [Ventolin Nebulized] 2.5 mg INHALATION RT-BID PRN PRN Reason: Shortness Of Breath Discontinued Metoprolol Succinate [Toprol XL] 25 mg PO DAILY Omeprazole Magnesium [PriLOSEC OTC] 20 mg PO DAILY Aspirin EC [Ecotrin Low Dose] 81 mg PO DAILY Discharge Medication List Albuterol Nebulized [Ventolin Nebulized] 2.5 mg INHALATION RT-BID PRN 12/26/20 [History] Cephalexin [Keflex] 500 mg PO BID 12/26/20 [History] Famotidine [Pepcid] 40 mg PO HS 12/26/20 [History] Multivit-Min/Iron/Folic/Lutein [Centrum Silver Women Tablet] 1 tab PO DAILY 12/26/20 [History] Zolpidem [Ambien] 5 mg PO HS PRN 12/26/20 [History] oxyCODONE-APAP 5-325MG [Percocet 5-325 mg] 1 tab PO Q4HR PRN 12/26/20 [History] Follow up Appointment(s)/Referral(s): Joe Parham MD [Primary Care Provider] - 1-2 days Residential Home,Health [NON-STAFF] - Patient Instructions/Handouts: Ovarian Cancer (DC) Discharge Disposition: HOME WITH HOSPICE
== END 2020-12-28 18:21 | disposition hospice, home (50) | DRG 394 ==
LOC: EC 02:52 → 5NMEDONC 03:50 → 1SOBS 12-27 10:38
PROVIDERS: ADMIT Family Medicine; ATTEND Family Medicine
DX: K63.2 Fistula of intestine (principal); C56.9 Malignant neoplasm of unspecified ovary; E87.1 Hypo-osmolality and hyponatremia; C79.9 Secondary malignant neoplasm of unspecified site; E44.0 Moderate protein-calorie malnutrition; Z20.822 Contact with and (suspected) exposure to COVID-19; D64.9 Anemia, unspecified; E86.0 Dehydration; E87.6 Hypokalemia; E87.70 Fluid overload, unspecified; I10 Essential (primary) hypertension; L98.492 Non-pressure chronic ulcer of skin of other sites with fat layer exposed; R62.7 Adult failure to thrive; Z51.5 Encounter for palliative care; Z66 Do not resuscitate; Z79.01 Long term (current) use of anticoagulants; Z79.82 Long term (current) use of aspirin; Z79.899 Other long term (current) drug therapy; Z80.3 Family history of malignant neoplasm of breast; Z85.3 Personal history of malignant neoplasm of breast; Z85.43 Personal history of malignant neoplasm of ovary; Z90.710 Acquired absence of both cervix and uterus
CPT/HCPCS: 80048; 80053; 83735; 84100; 84145; 84484; 85025; 85652; 86140; 87635; 99285